=== PATIENT | male | born 1970 | race Caucasian/White ===

== ENCOUNTER 2023-09-29 04:01 | Emergency (ER) | payer MEDICARE, SELFPAY ==
[2023-09-29 04:02] VITALS: BP 129/78
--- NOTE | 2023-09-29 07:19 | ED.GENMED ---
History of Present Illness
General
Chief Complaint: Skin Problem
Source: patient
Exam Limitations: none
Time Seen by Provider: 09/29/23 06:42
Nursing documentation reviewed up to this point in time: agreed with
Travel History
Have you had any contact with someone who has COVID-19?: No
Do you have any symptoms of coronavirus? Fever > 100 degrees, chills, cough, shortness of breath, sore throat, loss of taste or smell, muscle aches, or headache?: No
History of Present Illness
History of Present Illness:
Patient presents to ED secondary to recurrent 'MRSA infection' over the past 2 days, noted over top of his left index finger. Denies fever or chills. Denies nausea or vomiting. Denies trauma. Patient recognized his symptoms, as he has number of
similar skin infection in the past. Patient has responded successfully with use of Bactrim in the past.
Review of Systems
Review of Systems
Allergies reviewed?: Yes
All Other Systems: ROS reviewed and negative except as documented in HPI and ROS
Constitutional: Reports no symptoms; Denies fever or chills
Musculoskeletal: Reports other (finger pain w redness)
Skin: Reports other (finger redness)
Neurological: Reports no symptoms
Phy Exam
Physical Exam
Physical Exam:
Physical Exam
General: no apparent distress, not acutely ill. afebrile
Head: nc/at. eomi
Neck: supple. normal range of motion.
Neuro: alert and oriented. no focal neurological deficits
Skin: left 2nd phalanx - an approx 1mm area of erythema noted over dorsal aspect, prox to nail bed
Psychiatric: well kept. interactive and cooperative
Extremities: no edema. no calf tenderness.
Course
Vital Signs
Initial and Last Documented VS:
Initial Vital Signs
Temp Pulse Resp BP Pulse Ox
98.2 F 92 16 129/78 98
09/29/23 04:02 09/29/23 04:02 09/29/23 04:02 09/29/23 04:02 09/29/23 04:02
Last Documented Vital Signs
Temp Pulse Resp BP Pulse Ox
98.2 F 92 16 129/78 98
09/29/23 04:02 09/29/23 04:02 09/29/23 04:02 09/29/23 04:02 09/29/23 04:02
MDM/Problems Addressed
MDM/Problems Addressed:
History and exam consistent with likely what may be beginning stages of recurrent finger infection. Especially in light of patient's previous skin infection, i.e. MRSA, patient will be started empirically on antibiotics. Patient states that he has
responded successfully with Bactrim. As such, patient will be given short course of Bactrim, along with PCP follow-up as an outpatient.
*Critical Care Note
Total Time (30-74mins, 75-104mins- exclusive of procedures): Not Applicable
ED Attending Note
-
Portions of this chart may have been created with voice recognition software.� Occasional wrong word or��sound alike� substitutions may have occurred due to the inherent limitations of voice recognition software.
Discharge Plan
Departure
Patient Disposition: Home (Routine Discharge)
Date of Disposition: 09/29/23
Time of Disposition: 07:20
Patient with high blood pressure during this ER visit?: Yes
Discharge Problem:
Skin infection
Instructions: Cellulitis (Skin Infection), Adult (DC)
Prescriptions:
New
sulfamethoxazole-trimethoprim [Bactrim DS] 800-160 mg tablet
1 tab PO BID Qty: 14 0RF
No Action
clindamycin HCl 300 MG capsule
300 mg PO Q6HPRN Qty: 40 0RF
Rx Instructions:
take every 6 hrs for 10 days
Stand Alone Forms: Return to Work
Activity Restrictions/Additional Instructions:
As discussed, please follow-up with your primary care physician for reevaluation. Your prescription has been sent electronically to [facility] pharmacy in [place].
Interventions
Interventions:
*Risk Screen - Suicide Last Done: 09/29/23 04:02
*General Assessment Last Done: 09/29/23 04:02
*Neglect/Abuse Screening Last Done: 09/29/23 04:02
ED- Fall Risk Assessment Last Done: 09/29/23 04:02
*ED COVID-19 Vaccine History Last Done: 09/29/23 04:02
*Nursing Disposition Last Done: 09/29/23 07:35
ED-Skin Assessment Last Done: 09/29/23 07:30
Discharge Date and Time
Discharge Date/Time: 09/29/23 07:36
Print Language: FAROESE
== END 2023-09-29 07:36 | disposition home or self-care (01) ==
LOC: EMR 04:01
PROVIDERS: EMERGENCY PHYSICIAN Emergency Medicine
DX: L08.9 Local infection of the skin and subcutaneous tissue, unspecified (principal); R03.0 Elevated blood-pressure reading, without diagnosis of hypertension
CPT/HCPCS: 99283

== ENCOUNTER 2024-01-02 18:50 | Emergency (ER) | payer MEDICARE, SELFPAY ==
[2024-01-02 18:55] VITALS: BP 137/88
[2024-01-02 21:03] VITALS: BP 111/66
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
[2024-01-02] MEDS: DECADRON 10 MG PO (21:13)
== END 2024-01-02 21:20 | disposition home or self-care (01) ==
LOC: EMR 18:50
PROVIDERS: EMERGENCY PHYSICIAN Emergency Medicine
DX: H92.02 Otalgia, left ear (principal); L72.0 Epidermal cyst; L91.8 Other hypertrophic disorders of the skin; Z89.512 Acquired absence of left leg below knee
CPT/HCPCS: 99282

== ENCOUNTER 2024-06-28 04:49 | Inpatient (IN) | payer OTHER, MEDICARE, SELFPAY ==
[2024-06-28] VITALS (21 sets, daily range): BP systolic 97–136; BP diastolic 68–88; BMI 28.2; BMI 25.7; BMI 25.8
[2024-06-28 03:34] LABS: % Basophils 1.2 % (0-2); % Eosinophils 3.1 % (0-6); % Immature Granulocytes 0.3 % (0-0.5); % Lymphocytes 32.5 % (20.5-51.1); % Monocytes 6.8 % (1.7-9.3); % Neutrophils 56.1 % (42.2-75.2); Absolute Basophils 0.1 10^3/uL (0-0.2); Absolute Eosinophils 0.2 10^3/uL (0-0.7); Absolute Lymphocytes 2.1 10^3/uL (1.2-3.4); Absolute Monocytes 0.4 10^3/uL (0.1-0.6); Absolute Neutrophils 3.7 10^3/uL (1.4-6.5); Hematocrit 26.1 % (39.0-52.0); Hemoglobin 7.4 g/dL (13.0-18.0); Mean Corp Hgb Conc. 28.4 g/dL (33.0-37.0); Mean Corpuscular Hgb 17.8 pg (27.0-31.0); Mean Corpuscular Volume 62.9 fL (80.0-94.0); Mean Platelet Volume 9.9 fL (7.4-10.4); Nucleated Red Blood Cells % 0 % (-); Platelet Count 365 10^3/uL (130-400); Red Blood Cell Count 4.15 10^6/uL (4.70-6.10); Red Cell Dist. Width 17.9 % (11.5-14.5); White Blood Cell Count 6.5 10^3/uL (4.8-10.8)
[2024-06-28 03:46] LABS: ALT (SGPT) 34 U/L (0-50); AST (SGOT) 31 U/L (17-59); Albumin 3.9 g/dl (3.5-5.0); Alkaline Phosphatase 88 U/L (38-126); Blood Urea Nitrogen 20 mg/dl (9-20); Calcium 8.8 mg/dl (8.4-10.2); Carbon Dioxide 25 mmol/L (22-30); Chloride 104 mmol/L (98-107); Estimated Creatinine Clearance 87 ml/min; Glucose 120 mg/dl (70-99); Potassium 4.2 mmol/L (3.5-5.1); Sodium 138 mmol/L (135-145); Total Bilirubin 0.2 mg/dl (0.2-1.3); Total Protein 6.6 g/dl (6.3-8.2); eGFR > 60.00
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
[2024-06-28] MEDS: PROTONIX 100 IV (03:54)
[2024-06-28] MEDS: PROTONIX IV 80 MG IV (03:54)
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
[2024-06-28] MEDS: DEBROX EAR DROPS 5 DROP OTIC (08:40)
[2024-06-28] MEDS: NSS 1000 IV ×2 (08:45→22:47)
[2024-06-28 09:36] LABS: Hematocrit 29.1 % (39.0-52.0); Hemoglobin 8.4 g/dL (13.0-18.0)
--- NOTE | 2024-06-28 09:38 | PTCARENOTE ---
Pt arrived onto unit at 0638, VSS, AAOx3, strict bedrest. 1 unit of PRBC administered in ED, 1 additional unit ordered. Admission completed, 1 unit of PRBC hung by this RN, assessed at 15 minute linda, ROSARIO, pt resting comfortably in bed at time with
significant other at bedside. Call rashid within reach.
[2024-06-28 10:15] LABS: Iron < 20 ug/dl (49-181)
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
[2024-06-28 10:19] LABS: Total Iron Binding Capacity 542 ug/dl (261-462)
--- NOTE | 2024-06-28 12:01 | W.PN.HOSP.TC ---
Today's Communication/Plan
-
NPO pending EGD
Assessment / Plan
Assessment / Plan
54y M with PMH significant for GERD / PUD who presents to ED complaining of bloody stools x 3 days.
1. GI Bleed with Acute Blood Loss Anemia. Low MCV, Low iron, High TIBC, high RDW: likely acute on chronic bleed
Patient describes black stool and h/o PUD - but also describes bright red blood in toilet and on toilet paper.
- NPO, IVFs, follow H&H for changes.
- PRBCs ordered in the ED.
- PPI
- GI consult - EGD today
2. Cerumen Impaction - L > R
- Debrox gtt to each ear.
- Follow-up as an outpatient for cerumen extraction if needed.
3. s/p L BKA
- Stable. No acute issues.
- Bedrest for now pending resolution of GI bleeding issues to avoid fall / syncope risk.
DVT Prophylaxis: SCDs
Code Status: Full
Anticipated Discharge: 24 - 48 hours
Subjective/Interval History
-
Date of Service: June 28, 2024
Feels well. No further bleeding.
Objective Data
-
Labs:
Laboratory Results
06/28/24 06/28/24 06/28/24
03:20 07:13 14:37
WBC 6.5
Hgb 7.4 L 8.4 L Pending
Hct 26.1 L 29.1 L Pending
Plt Count 365
Sodium 138
Potassium 4.2
Chloride 104
Carbon Dioxide 25
BUN 20
Creatinine 1.0
Glucose 120 H
Calcium 8.8
Total Bilirubin 0.2
AST 31
ALT 34
Alkaline Phosphatase 88
06/28/24
22:37
WBC
Hgb Pending
Hct Pending
Plt Count
Sodium
Potassium
Chloride
Carbon Dioxide
BUN
Creatinine
Glucose
Calcium
Total Bilirubin
AST
ALT
Alkaline Phosphatase
Vital Signs:
Vital Signs
Temp Pulse Resp BP Pulse Ox
98.2 F 76 16 126/75 97
06/28/24 11:05 06/28/24 11:05 06/28/24 11:05 06/28/24 11:05 06/28/24 11:05
I&O
06/27/24 06/28/24 06/29/24
06:59 06:59 06:59
Intake Total 250 / 250 0 / 0
Balance 250 / 250 0 / 0
Review of Systems
-
History Source: Patient
All other systems: Reviewed and negative
Physical Exam
-
General: Well Developed, Well Nourished, No Apparent Distress, Comfortable and Conversant
HEENT: Normocephalic, Atraumatic, Moist Mucous Membranes, Nose Appears Normal and Ears Appear Normal
Respiratory: Clear to Auscultation
Cardiac: Regular Rhythm, S1/S2 and Murmur
GI: Soft, Nontender and Nondistended
Musculoskeletal: No Clubbing, No Cyanosis and No Edema
Skin: Warm and Dry
Neuro: Awake, Alert, Oriented and AO x 3
Psych: Calm
Data Reviewed
-
Labs: Labs Reviewed by me
[2024-06-28] MEDS: PROTONIX IV (13:46)
[2024-06-28 16:29] LABS: Hematocrit 31.1 % (39.0-52.0); Hemoglobin 9.2 g/dL (13.0-18.0)
[2024-06-28] MEDS: NULYTELY SOLUTION 2 LITERS PO (17:55)
[2024-06-28] MEDS: DEBROX EAR DROPS 1 DROP OTIC (20:16)
[2024-06-28] MEDS: PROTONIX 40 MG PO (20:16)
[2024-06-28 23:05] LABS: Hematocrit 32.1 % (39.0-52.0); Hemoglobin 9.2 g/dL (13.0-18.0)
[2024-06-29 03:06] VITALS: BP 123/85
[2024-06-29] MEDS: NULYTELY SOLUTION 2 LITERS PO (04:37)
[2024-06-29 05:42] VITALS: BMI 26.5
[2024-06-29] MEDS: NSS 1000 IV (07:54)
[2024-06-29] MEDS: DEBROX EAR DROPS 5 DROP OTIC (07:55)
[2024-06-29] MEDS: PROTONIX 40 MG PO (07:55)
[2024-06-29 08:02] VITALS: BP 143/90
[2024-06-29 08:33] LABS: Hematocrit 32.6 % (39.0-52.0); Hemoglobin 9.5 g/dL (13.0-18.0); Mean Corp Hgb Conc. 29.1 g/dL (33.0-37.0); Mean Corpuscular Hgb 19.9 pg (27.0-31.0); Mean Corpuscular Volume 68.3 fL (80.0-94.0); Mean Platelet Volume 9.8 fL (7.4-10.4); Platelet Count 330 10^3/uL (130-400); Red Blood Cell Count 4.77 10^6/uL (4.70-6.10); Red Cell Dist. Width 21.8 % (11.5-14.5); White Blood Cell Count 6.6 10^3/uL (4.8-10.8)
[2024-06-29 09:04] LABS: Blood Urea Nitrogen 9 mg/dl (9-20); Calcium 8.6 mg/dl (8.4-10.2); Carbon Dioxide 23 mmol/L (22-30); Chloride 108 mmol/L (98-107); Estimated Creatinine Clearance 94 ml/min; Glucose 90 mg/dl (70-99); Potassium 4.6 mmol/L (3.5-5.1); Sodium 138 mmol/L (135-145); eGFR > 60.00
[2024-06-29 09:45] VITALS: BP 108/79; BP_SYST 16
[2024-06-29 10:00] VITALS: BP 118/74; BP_SYST 18
--- NOTE | 2024-06-29 11:39 | W.PN.HOSP.TC ---
Today's Communication/Plan
-
If he tolerates diet, discharge home for ongoing outpatient workup.
Assessment / Plan
Assessment / Plan
54y M with PMH significant for GERD / PUD who presents to ED complaining of bloody stools x 3 days.
1. GI Bleed with Acute Blood Loss Anemia. Low MCV, Low iron, High TIBC, high RDW: likely acute on chronic bleed
Patient describes black stool and h/o PUD - but also describes bright red blood in toilet and on toilet paper.
- Tolerating a diet after EGD and Colonoscopy.
- H/H going up
- PPI
- Ok to continue rest of workup (pill endoscopy) as outpatient
2. Cerumen Impaction - L > R
- Debrox gtt to each ear.
- Follow-up as an outpatient for cerumen extraction if needed.
3. s/p L BKA
- Stable. No acute issues.
- Bedrest for now pending resolution of GI bleeding issues to avoid fall / syncope risk.
DVT Prophylaxis: SCDs
Code Status: Full
Anticipated Discharge: Today
Subjective/Interval History
-
Date of Service: June 29, 2024
Feels well. Colonoscopy found hemorroids and polyps. No obvious source of bleeding.
Objective Data
-
Labs:
Laboratory Results
06/29/24
07:54
WBC 6.6
Hgb 9.5 L
Hct 32.6 L
Plt Count 330
Sodium 138
Potassium 4.6
Chloride 108 H
Carbon Dioxide 23
BUN 9
Creatinine 0.9
Glucose 90
Calcium 8.6
Vital Signs:
Vital Signs
Temp Pulse Resp BP Pulse Ox
97.4 F 74 18 118/74 96
06/29/24 10:00 06/29/24 10:00 06/29/24 10:00 06/29/24 10:00 06/29/24 10:00
I&O
06/28/24 06/29/24 06/30/24
06:59 06:59 06:59
Intake Total 250 / 250 4750 / 4750
Output Total 675 / 675
Balance 250 / 250 4075 / 4075
Review of Systems
-
History Source: Patient
All other systems: Reviewed and negative
Physical Exam
-
General: Well Developed, Well Nourished, No Apparent Distress and Comfortable
HEENT: Normocephalic, Atraumatic and Moist Mucous Membranes
Respiratory: Clear to Auscultation
Cardiac: Regular Rhythm and S1/S2
GI: Soft, Nontender and Nondistended
Musculoskeletal: No Clubbing, No Cyanosis and No Edema
Skin: Warm and Dry
Neuro: Awake, Alert, Oriented and AO x 3
Psych: Calm
Data Reviewed
-
Labs: Labs Reviewed by me
--- NOTE | 2024-06-29 11:46 | W.DCSUMMARY ---
Discharge Summary
Discharge Data
Date of Admission: 06/28/24
Date of Discharge: 06/29/24
-
Pending Results: No
Hospital Course
Principal Diagnosis:
Gastrointestinal bleeding
See results of EGD and colonoscopy below
Chronic Diagnoses:�
GERD
PUD
Traumatic BKA
Consultations:�
GI
Procedures:�
Endoscopy:
Findings:
- Normal esophagus.
- 4 cm hiatal hernia.
- LA Grade A reflux esophagitis with no bleeding. Rule
out Galarza's esophagus. Biopsied.
- Mild Schatzki ring.
- Mucosal nodule found in the esophagus. Biopsied.
- Erythematous mucosa in the antrum. Biopsied.
- A few gastric polyps. Biopsied.
- Normal examined duodenum. Biopsied.
- Duodenal mucosal lymphangiectasia.
- Erythematous duodenopathy.
- Biopsies were taken with a cold forceps for
evaluation of eosinophilic esophagitis.
Diagnosis Code(s):
K44.9, Diaphragmatic hernia without obstruction or
gangrene
K21.00, Gastro-esophageal reflux disease with
esophagitis, without bleeding
K22.2, Esophageal obstruction
K22.89, Other specified disease of esophagus
K31.89, Other diseases of stomach and duodenum
K31.7, Polyp of stomach and duodenum
I89.0, Lymphedema, not elsewhere classified
R10.84, Generalized abdominal pain
R12, Heartburn
D50.0, Iron deficiency anemia secondary to blood loss
(chronic)
K92.1, Melena (includes Hematochezia)
Colonoscopy
Findings
- Large external, non-thrombosed hemorrhoids found on
perianal exam. Suspect source of previous bright red
blood per rectum
- One 3 mm polyp in the cecum, removed with a jumbo
cold forceps. Resected and retrieved.
- One 5 mm polyp in the descending colon, removed with
a cold snare. Resected and retrieved.
- Moderate diverticulosis in the sigmoid colon and in
the descending colon. There was no evidence of
diverticular bleeding.
- The exam was otherwise without abnormality on direct
and retroflexion views without any old or fresh blood,
AVMs, masses, or endoscopic signs of inflammation
throughout the colon.
Recommendation:
- Resume previous diet today.
- Continue present medications.
- Await pathology results.
- Repeat colonoscopy in 3 years for surveillance.
- Outpatient follow-up with Colorectal surgery given
large external hemorrhoids and likely source of
intermittent rectal bleeding
- Outpatient follow-up with GI for consideration of a
video capsule endoscopy as an outpatient for further
evaluation of iron deficiency anemia
- The findings and recommendations were discussed with
the patient.
Diagnosis Code(s):
K64.9, Unspecified hemorrhoids
D12.0, Benign neoplasm of cecum
D12.4, Benign neoplasm of descending colon
K62.5, Hemorrhage of anus and rectum
D50.9, Iron deficiency anemia, unspecified
K57.30, Diverticulosis of large intestine without
perforation or abscess without bleeding
Clinical course:�
54y M with a PMH significant for GERD / PUD who presented to the ED complaining of bloody stools x 3 days.
He
1. GI Bleed with Acute Blood Loss Anemia. Low MCV, Low iron, High TIBC, high RDW: likely acute on chronic bleed
Patient describes black stool and h/o PUD - but also describes bright red blood in toilet and on toilet paper.
- Tolerating a diet after EGD and Colonoscopy.
- H/H going up
- PPI BI ordered
- Ok to continue rest of workup (pill endoscopy) as outpatient
- See GI recommendations above
- Avoid NSAIds and steroids
- discuss iron supplementation with GI provider
- results and these recommendations d/w patient. he agrees with discharge.
2. Cerumen Impaction - L > R
- Debrox gtt to each ear.
- Follow-up as an outpatient for cerumen extraction if needed.
3. s/p L BKA
- Stable. No acute issues.
- Bedrest for now pending resolution of GI bleeding issues to avoid fall / syncope risk.
As for the rest of his medical problems, they were stable during his hospital stay.
Discharge Plan
-
Patient Disposition: Home (Routine Discharge)
Discharge Diagnosis/Procedures: Gastrointestinal bleeding
Diet: As tolerated
Activity: No restrictions
Driving Restrictions: As prior to admission
Bathing Restrictions: None
Blood Work: Check CBC with your outpatient provider as soon as you can.
Referrals:
NONE,* [Family Provider] - Immediately
(Follow up with your enrollment management manager as soon as you can.
Please call to reschedule if you can not keep this appointment. If your insurance requires a referral please contact your primary care physician prior to your appointment. )
Prescriptions:
New
acetaminophen 325 mg Tablet
650 mg PO Q4HPRN PRN (Reason: Mild Pain / Temp > 101) Qty: 30 0RF
pantoprazole 40 mg Tablet,Delayed Release (Dr/Ec)
40 mg PO BID Qty: 60 0RF
Discontinued
esomeprazole magnesium [Nexium] 20 mg Capsule,Delayed Release(Dr/Ec)
20 mg PO DAILY
Discharge Orders:
Discharge Patient (As Directed); Ordered 06/29/24
Ordered By: Ramon Laurent
Discharge Date and Time
Print Language: FRENCH
[2024-06-29 11:55] VITALS: BP 120/76
--- NOTE | 2024-06-29 11:56 | CM ---
Pt seen bedside. Initial assessment completed.
Pt reports he lives w/ his girlfriend and friend in a single story home- 3/4 steps to enter.
Pt is a L leg amputee and states he is independent w/ ambulating. Pt states he uses a knee scooter to travel longer distances. No other DME identified.
Pt is known to [place] for both OP therapy and skilled rehab years ago.
Address, point of contact and insurance verified
PCP: Pt does not have a PCP at this time. CM instructed pt to contact his insurance to get a provider within network
Pharmacy: [facility]
Pt is for d/c today. Pt discussed w/ CM interest in housing and credit repair resources.
CM provided resources to pt via nurse retrieved from [facility] system.
Plan: Home; no needs
--- NOTE | 2024-07-02 14:19 | PN.CDI ---
CDI
- -
CDI:
Physician Documentation Request
Admit Date: 06/28/24 04:49
Dear Doctor Xi,
Please review the following and provide your response in the progress notes.
Diagnosis:
The diagnosis is of PUD is documented in the record on H&P and DC Summary
Clinical indicators:
- per H&P patient has pmh Gerd/PUD with prior GI bleeds
- home medication Nexium daily
- EGD and pathology do not state PUD
Please clarify the following:
____ - PUD was present on admission and is still being monitored, evaluated or treated
____ - PUD was ruled out
____ - Other
Use of terms such as suspected, likely, concern for, or probable (associated with a specific diagnosis that is being evaluated, monitored, or treated as if it exists) are acceptable and can be coded in the inpatient setting, when documented at the
time of discharge.
Thank you,
Brenden eHrnandez RN
CDI Specialist
Please use your independent medical judgment in providing your response.
--- NOTE | 2024-07-02 15:34 | W.PN.UPDATE ---
Update Note
Progress Note Update
Asked to updated chart by CDI RN.
EGD does not show ulcer therefore that ruled out PUD.
== END 2024-06-29 15:00 | disposition home or self-care (01) | DRG 394 ==
LOC: 2 NORTH 04:49
PROVIDERS: Nurse Practitioner; Student in an Organized Health Care Education/Training Program; ADMITTING PHYSICIAN Hospitalist; ATTENDING PHYSICIAN Internal Medicine; EMERGENCY PHYSICIAN Student in an Organized Health Care Education/Training Program; OTHER PHYSICIAN Internal Medicine Gastroenterology
PROC: 0DB68ZX Excision of Stomach, Via Natural or Artificial Opening Endoscopic, Diagnostic (ICD-10-PCS; 2024-06-28)
PROC: 0DB18ZX Excision of Upper Esophagus, Via Natural or Artificial Opening Endoscopic, Diagnostic (ICD-10-PCS; 2024-06-28)
PROC: 0DB78ZX Excision of Stomach, Pylorus, Via Natural or Artificial Opening Endoscopic, Diagnostic (ICD-10-PCS; 2024-06-28)
PROC: 0DB98ZX Excision of Duodenum, Via Natural or Artificial Opening Endoscopic, Diagnostic (ICD-10-PCS; 2024-06-28)
PROC: 30233N1 Transfusion of Nonautologous Red Blood Cells into Peripheral Vein, Percutaneous Approach (ICD-10-PCS; 2024-06-28)
PROC: 0DB38ZX Excision of Lower Esophagus, Via Natural or Artificial Opening Endoscopic, Diagnostic (ICD-10-PCS; 2024-06-28)
PROC: 0DBM8ZZ Excision of Descending Colon, Via Natural or Artificial Opening Endoscopic (ICD-10-PCS; 2024-06-29)
PROC: 0DBH8ZZ Excision of Cecum, Via Natural or Artificial Opening Endoscopic (ICD-10-PCS; 2024-06-29)
DX: K64.9 Unspecified hemorrhoids (principal); D62 Acute posthemorrhagic anemia; F17.210 Nicotine dependence, cigarettes, uncomplicated; K22.2 Esophageal obstruction; K21.00 Gastro-esophageal reflux disease with esophagitis, without bleeding; K31.7 Polyp of stomach and duodenum; D12.0 Benign neoplasm of cecum; D12.4 Benign neoplasm of descending colon; H61.23 Impacted cerumen, bilateral; I89.0 Lymphedema, not elsewhere classified; K57.30 Diverticulosis of large intestine without perforation or abscess without bleeding; K44.9 Diaphragmatic hernia without obstruction or gangrene; Z89.512 Acquired absence of left leg below knee; Z86.73 Personal history of transient ischemic attack (TIA), and cerebral infarction without residual deficits; Z87.11 Personal history of peptic ulcer disease
CPT/HCPCS: 88305; 80048; 80053; 83540; 83550; 85014; 85018; 85025; 85027; 86850; 86900; 86901; 86920; 87070; 88342; 93005; 96374; 99285; P9016

== ENCOUNTER 2024-07-08 04:09 | Observation (INO) | payer OTHER, SELFPAY ==
[2024-07-07 23:46] VITALS: BP 147/92
[2024-07-08] VITALS (7 sets, daily range): BP systolic 105–144; BP diastolic 59–88; PULSE 84–99; BMI 26.5
[2024-07-08 00:25] LABS: % Eosinophils 2.6 % (0-6); % Immature Granulocytes 0.3 % (0-0.5); % Lymphocytes 33.1 % (20.5-51.1); Absolute Basophils 0.1 10^3/uL (0-0.2); Absolute Eosinophils 0.2 10^3/uL (0-0.7); Absolute Lymphocytes 2.3 10^3/uL (1.2-3.4); Absolute Monocytes 0.5 10^3/uL (0.1-0.6); Absolute Neutrophils 3.9 10^3/uL (1.4-6.5); Hematocrit 29.6 % (39.0-52.0); Hemoglobin 8.6 g/dL (13.0-18.0); Mean Corp Hgb Conc. 29.1 g/dL (33.0-37.0); Mean Corpuscular Hgb 19.5 pg (27.0-31.0); Mean Corpuscular Volume 67.1 fL (80.0-94.0); Mean Platelet Volume 9.7 fL (7.4-10.4); Nucleated Red Blood Cells % 0 % (-); Platelet Count 350 10^3/uL (130-400); Red Blood Cell Count 4.41 10^6/uL (4.70-6.10); Red Cell Dist. Width 21.9 % (11.5-14.5); White Blood Cell Count 6.9 10^3/uL (4.8-10.8)
[2024-07-08 00:33] LABS: INR 0.94; PT 13.1 Sec (11.4-14.6)
[2024-07-08 00:34] LABS: APTT 27.3 Sec (23.4-35.0)
[2024-07-08 00:46] LABS: ALT (SGPT) 23 U/L (0-50); AST (SGOT) 23 U/L (17-59); Alkaline Phosphatase 92 U/L (38-126); Blood Urea Nitrogen 13 mg/dl (9-20); Calcium 9.2 mg/dl (8.4-10.2); Carbon Dioxide 23 mmol/L (22-30); Chloride 105 mmol/L (98-107); Glucose 119 mg/dl (70-99); Potassium 4.1 mmol/L (3.5-5.1); Sodium 138 mmol/L (135-145); Total Bilirubin 0.2 mg/dl (0.2-1.3); Total Protein 6.8 g/dl (6.3-8.2); eGFR > 60.00
--- NOTE | 2024-07-08 01:23 | ED.GENMED ---
History of Present Illness
General
Chief Complaint: Rectal Bleeding
Time Seen by Provider: 07/08/24 01:17
History of Present Illness
History of Present Illness:
TIME OF INITIAL ENCOUNTER: 1:15 AM
HPI: Patient presents with recurrence of rectal bleeding. He was supposed to get capsule endoscopy as an outpatient but insurance would not cover it and this study was canceled. He had endoscopy and colonoscopy last admission a week and a half ago
and at that time was also given a blood transfusion. He has continued rectal bleeding with a general unwell feeling/weakness. He has some vague abdominal bloating as well.
EXAM:
GENERAL: Appears somewhat weak and pale
HEENT: Moist oral mucosa
CARDIOVASCULAR: No murmurs, normal heart rate, regular rhythm, No chest wall tenderness
PULMONARY: No respiratory distress, breath sounds are clear and equal
ABDOMEN: Soft with no peritoneal signs, no tenderness, large external hemorrhoids noted but no active bleeding, there was pain with palpation of the anal region
NEUROLOGIC: Excellent strength all extremities, no coordination deficits
PSYCHIATRIC: Appropriate mental status, normal insight and judgement
EXTREMITIES: Nontender, no edema, moves all extremities equally
NUMBER AND COMPLEXITY OF PROBLEMS ADDRESSED AT THE ENCOUNTER
� Chronic conditions affecting care: Recent diagnosis acute blood loss anemia
� Acute Exacerbation and/or Progression of Chronic Illness: This is a subacute/ongoing problem
� Differential Diagnosis includes: Upper GI bleed, diverticular bleed, GERD, blood loss from hemorrhoids
AMOUNT AND/OR COMPLEXITY OF DATA TO BE REVIEWED AND ANALYZED
� I performed an independent evaluation of and my interpretation is:
EKG:
CT:
X-rays:
Laboratory Studies: Hemoglobin is 8.6, white count is normal, platelets are normal, chemistries relatively unremarkable with normal BUN
Other:
� Review of other/old records: I reviewed records. I reviewed EGD biopsies that showed unremarkable duodenal mucosa, no evidence for H. pylori, gastric xanthelasma, unremarkable esophageal biopsies. Cecal/descending colon
polyps biopsy showed tubular adenomas.
� Clinical information was obtained by an independent historian: I spoke to girlfriend at bedside
� Prescriptions/Medications Considered but not given:
� Further testing considered but not performed:
RISK OF COMPLICATIONS AND/OR MORBIDITY OR MORTALITY OF PATIENT MANAGEMENT
� Social determinants of health affecting care: Lives at home
� Discussion with other providers: Hospitalist for admission
� Escalation of care including admission/observation vs risk of discharge considered: The patient comes in due to recurring GI bleed. Had recent endo/colo w/ unremarkable biopsies when admitted here 1.5wks ago. Continues to bleed
w/ BMs. In 2018 hgb 14, was as low as 7.4 last admit, was transfused then d/c'd at 9.5. Now hgb dropping again at 8.6, but no gross blood / no stool in rectal vault to test. He has large external hemorrhoids on exam - d/c summary said he was to see
colorectal as outpt but he doesn't think he did. He was to get capsule endoscopy, but was cancelled based on his insurance. Since he is dropping, I would like GI to see again / repeat hgb tomorrow / colorectal.
ANY OTHER UPDATES:
Phy Exam
Physical Exam
Physical Exam:
See HPI
Sepsis
Sepsis Screening
Sepsis Assessment: Sepsis Ruled Out
Sepsis Screen
Sepsis Screen: Sepsis Ruled Out
Date: 07/08/24
Time: 02:15
Course
Orders/Labs/Results
Orders:
Orders
07/07/24 23:52
CMP [Comprehensive Metabolic Panel] Urgent
Complete Blood Count/With Diff Urgent
07/07/24 23:53
PTT Urgent
Prothrombin Time Urgent
Abnormal Lab Results
07/08/24
00:03
RBC 4.41 L 10^6/uL
(4.70-6.10)
Hgb 8.6 L g/dL
(13.0-18.0)
Hct 29.6 L %
(39.0-52.0)
MCV 67.1 L fL
(80.0-94.0)
MCH 19.5 L pg
(27.0-31.0)
MCHC 29.1 L g/dL
(33.0-37.0)
RDW 21.9 H %
(11.5-14.5)
Glucose 119 H mg/dl
(70-99)
07/08/24 00:03
07/08/24 00:03
Vital Signs
Initial and Last Documented VS:
Initial Vital Signs
Temp Pulse Resp BP Pulse Ox
36.4 C 100 24 147/92 99
07/07/24 23:46 07/07/24 23:46 07/07/24 23:46 07/07/24 23:46 07/07/24 23:46
Last Documented Vital Signs
Temp Pulse Resp BP Pulse Ox
36.4 C 100 24 147/92 99
07/07/24 23:46 07/07/24 23:46 07/07/24 23:46 07/07/24 23:46 07/07/24 23:46
*Critical Care Note
Total Time (30-74mins, 75-104mins- exclusive of procedures): Not Applicable
ED Attending Note
-
Portions of this chart may have been created with voice recognition software.� Occasional wrong word or��sound alike� substitutions may have occurred due to the inherent limitations of voice recognition software.
Discharge Plan
Departure
Patient Disposition: Admit
Date of Disposition: 07/08/24
Time of Disposition: 02:01
Presentation/result/management discussed w/ accepting MD/DO: Hospitalist
Discharge Problem:
Acute on chronic blood loss anemia
Prescriptions:
No Action
acetaminophen 325 mg Tablet
650 mg PO Q4HPRN PRN (Reason: Mild Pain / Temp > 101) Qty: 30 0RF
pantoprazole 40 mg Tablet,Delayed Release (Dr/Ec)
40 mg PO BID Qty: 60 0RF
Referrals:
UNKNOWN - PT DOES,NOT KNOW [Family Provider] -
Interventions
Interventions:
*Risk Screen - Suicide Last Done: 07/07/24 23:46
Discharge Date and Time
Print Language: SLOVENIAN
--- NOTE | 2024-07-08 03:01 | HPS.HSE ---
Family Physician
-
Family Physician: NOT KNOW UNKNOWN - PT DOES
Chief Complaint
-
Rectal bleeding and melena
History of Present Illness
This is a 54-year-old past medical history significant for prior peptic ulcer disease, large thrombosed hemorrhoid who was seen in the hospital for rectal bleeding status post EGD and colonoscopy now presents to the emergency department with ongoing
similar bleeding at his previous presentation.
Patient has history of rectal bleeding status post transfusion for blood loss anemia in the past. He had EGD colonoscopy in late May for rectal bleeding and dark stools. EGD was mostly unremarkable with a gastric and duodenal polyp status
post resection and biopsy. The colonoscopy showed thrombosed internal hemorrhoid, a cecal polyp and a descending colon polyp s/p resection. Patient was advanced on his diet and referred for capsule endoscopy as well as to colorectal for management
of the internal hemorrhoid. Since discharge patient reports that he has continued to bleed. Reports both back tarry stool as well as red blood stool. Usually these are mixed. He denies significant rectal pain unless he is sitting on a hard
surface for prolonged period of time. He denies any lightheadedness. He denies dizziness. Patient reports that he has been feeling weak and lethargic over the last few days and decided come in. Unfortunately his capsule endoscopy has been
postponed. He also has not been able to follow-up with colorectal. He has lost his primary care doctor and is currently seeking 1 with the help of his significant other. Patient was not on any medications. No NSAIDs.
In the emergency department he was afebrile, blood pressure was stable at 140/90 with a pulse of 100. His hemoglobin was 8.6 down from 9.51-week ago. Electrolytes BUN/creatinine were normal.
Medical History
Past Medical History
Past Medical History: Reports GERD and Other (Peptic ulcer disease)
Additional Past Medical History:
Anemia of blood loss
Past Surgical History: Reports Other
Additional Past Surgical History:
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
Social History
Alcohol: None
Drug: None
Personal: Partner
Living: With Family
Family History
Family History: Not pertinent
Allergies / Home Medications
Allergies reflects when Allergies were last updated in [facility].
Home Medications with original date entered in [facility]
Allergy/Medication List:
Allergies
Allergy/AdvReac Type Severity Reaction Status Date / Time
No Known Allergies Allergy Verified 07/07/24 23:44
Home Medications
acetaminophen 325 mg tablet 650 mg (2 x 325 mg) PO Q4HPRN PRN Mild Pain / Temp > 101 #30 tabs 06/29/24
pantoprazole 40 mg tablet,delayed release 40 mg PO BID #60 tabs 06/29/24
Review of Systems
-
History Source: Patient and Family
Constitutional: Reports No Symptoms
EENT: Reports No Symptoms
Respiratory: Reports No Symptoms
Cardiac: Reports No Symptoms
Abdomen/GI: Reports Bloody Stools and Black Stools
: Reports No Symptoms
Musculoskeletal: Reports No Symptoms
Skin: Reports No Symptoms
Neurological: Reports No Symptoms
Endocrine: Reports No Symptoms
Hematologic/Lymphatic: Reports No Symptoms
Psych: Reports No Symptoms
Physical Exam
Vital Signs
Vital Signs
Temp Pulse Resp BP Pulse Ox
97.6 F 100 24 147/92 99
07/07/24 23:46 07/07/24 23:46 07/07/24 23:46 07/07/24 23:46 07/07/24 23:46
Physical Exam
General: Well Developed, Well Nourished and No Apparent Distress
HEENT: NormoCephalic, Anicteric, Moist mucous membranes and Atraumatic
Respiratory: Clear
Cardiac: S1/S2 and Regular Rhythm
Breast: Deferred by me
GI: Soft, Non Tender, Non Distended and Normal Bowel Sounds
Rectal: Deferred by Provider
Genito-urinary: Deferred by me
Musculoskeletal: No Clubbing, No Cyanosis and No Edema
Skin: Warm
Neuro: AO x 3 and Nonfocal/grossly intact
Hematologic/Lymphatic: No Lymphadenopathy
Psych: Calm
Laboratory Results
-
07/08/24 00:03
07/08/24 00:03
Laboratory Results
PT 13.1 Sec (11.4-14.6) 07/08/24 00:03
INR 0.94 07/08/24 00:03
APTT 27.3 Sec (23.4-35.0) 07/08/24 00:03
Total Bilirubin 0.2 mg/dl (0.2-1.3) 07/08/24 00:03
AST 23 U/L (17-59) 07/08/24 00:03
ALT 23 U/L (0-50) 07/08/24 00:03
Alkaline Phosphatase 92 U/L (38-126) 07/08/24 00:03
Data Reviewed
-
Lab Data: Labs Reviewed by me
Old Records: Reviewed
Impression/Plan
-
IMPRESSION:
Subacute on chronic blood loss anemia. Hgb down to 8.6 with ongoing slow GI bleed 2/2 hemorrhoids. Small bowel as possible additional source of bleeding. Hemodynamically stable here and in no acute distress. Feels anemic. Low Iron and MCV is
dropping.
PLAN:
1. Subacute blood loss anemia and iron deficiency from ongoing GI bleeding. No evidence of change in intensity of bleeding compared to discharge time.
- admit to med/surg
- continue ppi orally bid
- clear liquid diet
- type and screen, HD stable and no profuse bleeding, no indication for immediate transfusion
- check h&h in 8 hours
- iron infusion
- GI consult
2. Cerumen Impaction - L > R
- Follow-up as an outpatient for cerumen extraction if needed.
DVT PPX SCDs
Code status = full code
[2024-07-08] MEDS: FERRLECIT 110 MG IV (04:50)
[2024-07-08] MEDS: PROTONIX 40 MG PO ×2 (07:58→20:14)
--- NOTE | 2024-07-08 08:23 | CON.GI ---
Addendum entered and electronically signed by Isatu Holliday MD 07/08/24 17:47:
I saw and examined the patient.
The Resident's note was reviewed and I agree with the note.
Comment: 54-year-old male with history of right BKA, history of peptic ulcer disease, GERD, who was recently admitted to the hospital 06/28/2024 with intermittent rectal bleeding at [facility] E[facility]/colonoscopy-remarkable for LA grade a esophagitis, colon
polyps that were removed and diverticulosis and hemorrhoids. He was discharged on 06/29/2024 now presenting with rectal bleeding, blood dripping into the toilet bowl. Discharge hemoglobin 06/29/2024 was 9.5, today it is 8.9. He does have iron
deficiency indices, he was supposed to get small bowel capsule study as an outpatient but was canceled due to insurance reasons.
On exam, nonthrombosed external hemorrhoids noted, some discomfort during digital rectal exam, no fresh blood noted but tinge of mucus in blood.
-Rectal bleeding with blood dripping into the toilet bowl, likely related to internal hemorrhoids.
Colonoscopy 10 days ago with diverticulosis and polyps and hemorrhoids but no other source for bleeding.
Patient does report pushing and straining with bowel movements and incomplete evacuation and bright blood on the toilet tissue, in the bowl and dripping more suggesting hemorrhoidal bleeding.
He was supposed to follow-up with colorectal surgery as outpatient but has not made an appointment.
For colorectal surgery consultation and further management of hemorrhoids per colorectal surgery.
-Microcytic indices, he will need eventual small bowel capsule study.
Will arrange for follow-up with our office.
Will sign off for now, please call back if needed
Original Note:
Documented by User: Jadiel Guy MD, Resident 07/08/24 13:57
Consultation
-
Date/Time Consultation Requested: 07/08/2024 07: 01
Date/Time Consultation Performed: 07/08/2024 08: 30
Requesting Provider: Grace Cameron MD
Performing Provider: Isatu Holliday MD
Reason for Consultation: Persistent GI bleed
Medical History
Chief Complaint / HPI
Chief Complaint: Persistent GI bleeding
History of Present Illness:
54-year-old male with PMH of PUD, GERD, rectal bleeding with blood loss anemia, recently discharged from this hospital on 06/29/2024 for rectal bleeding s/p EGD/colonoscopy who presents to ED on 07/08/2024 with black tarry stool, recurrent/similar
rectal bleeding with blood loss anemia. Patient reports that this has been an ongoing situation in which he gets GI bleed for sitting for too long. Gastroenterology was consulted for further evaluation and management of patient.
During his last visit, patient was evaluated with colonoscopy and endoscopy with resection and biopsy of multiple polyps in the gastric fundus, cecum, and descending colon. There was also a large nonthrombosed external hemorrhoid on perianal exam
suspicious for source of bleeding. No other source of bleeding was identified during the procedures. Pathology reports where remarkable for tubular adenoma in the cecum and descending colon. Endoscopic biopsies were unremarkable except for fundic
gland polyp with gastric xanthelasma with no evidence of H. pylori. Patient was discharged and referred for capsule endoscopy and colorectal surgery follow-up. However, patient was not able to get capsule endoscopy due to insurance coverage and has
not followed up with colorectal.
Patient reports continuous rectal bleeding, weakness and lethargy over the past few days. He takes pantoprazole 40 mg twice daily and does not take any NSAIDs. Patient is a current smoker (2 cigarettes daily), but does not drink alcohol. While
in the ED, patient's vitals are stable, he is afebrile and breathing on room air and saturating at 97%. He is Hb is 8.6, MCV 67.1, platelets 350, PT/INR WNL. Patient denies chest pain, shortness of breath, abdominal pain, dizziness, fever, chills,
headaches.
Past Medical History
Past Medical History: CAD (?), GERD and Other (PUD, TIA)
Past Surgical History: Other (Left BKA, polyps resection)
Social History
Tobacco: Smoker (2 cigarettes daily)
Alcohol: None
Drug: None
Family History
Family History: Cancer (Mother: Breast cancer, father: Colon cancer)
Allergies / Home Medications
Allergy/AdvReac Type Severity Reaction Status Date / Time
No Known Allergies Allergy Verified 07/07/24 23:44
�Medication �Instructions �Recorded
No Meds [No Current Medications] 07/08/24
Review of Systems
-
All other systems: A 12 pt ROS was Negative except as stated above in HPI
Vital Signs
Temp Pulse Resp BP Pulse Ox
97.8 F 76 16 105/72 97
07/08/24 08:08 07/08/24 08:08 07/08/24 08:08 07/08/24 08:08 07/08/24 08:08
Physical Exam
Exam
General: Well Developed, No Apparent Distress and Comfortable
Respiratory: Clear and Non Labored Respirations; Negative Wheezes or Rhonchi
Cardiac: S1/S2, Regular Rhythm and Murmur (Systolic ejection murmur)
GI: Soft and Non Tender
Skin: Warm
Neuro: Awake and AO x 3
Psych: Calm
Results
WBC 6.9 10^3/uL (4.8-10.8) 07/08/24 00:03
Hgb 8.6 g/dL (13.0-18.0) L 07/08/24 00:03
Hct 29.6 % (39.0-52.0) L 07/08/24 00:03
MCV 67.1 fL (80.0-94.0) L 07/08/24 00:03
Plt Count 350 10^3/uL (130-400) 07/08/24 00:03
Absolute Neuts (auto) 3.9 10^3/uL (1.4-6.5) 07/08/24 00:03
PT 13.1 Sec (11.4-14.6) 07/08/24 00:03
INR 0.94 07/08/24 00:03
APTT 27.3 Sec (23.4-35.0) 07/08/24 00:03
Sodium 138 mmol/L (135-145) 07/08/24 00:03
Potassium 4.1 mmol/L (3.5-5.1) 07/08/24 00:03
Chloride 105 mmol/L (98-107) 07/08/24 00:03
Carbon Dioxide 23 mmol/L (22-30) 07/08/24 00:03
BUN 13 mg/dl (9-20) 07/08/24 00:03
Creatinine 1.1 mg/dL (0.7-1.3) 07/08/24 00:03
Calcium 9.2 mg/dl (8.4-10.2) 07/08/24 00:03
Total Bilirubin 0.2 mg/dl (0.2-1.3) 07/08/24 00:03
AST 23 U/L (17-59) 07/08/24 00:03
ALT 23 U/L (0-50) 07/08/24 00:03
Alkaline Phosphatase 92 U/L (38-126) 07/08/24 00:03
Assessment / Plan
-
Assessment: 54-year-old male with PMH of PUD, GERD, recurrent rectal bleeding, acute blood loss anemia who presented to ED with complaints of recurrent/persistent GI bleed after recent discharge.
Recommendations:
Subacute GI bleeding.
-Suspect bleeding from internal hemorrhoid (generally external hemorrhoids does not bleed). External hemorrhoid may have thrombosed and bled. Hemorrhoidal bleeding generally does not cause iron deficiency anemia.
-Check celiac panel.
-Supportive therapy with IV fluid, pain management.
-Outpatient capsule endoscopy as scheduled.
-Follow-up with colorectal as scheduled.
-Continue on clear liquid diet, advance as tolerated.
-Follow H&H and transfuse to keep Hb >7.0.
-Advised not to sit for so long on toilet bowl.
-Continue PPI.
-Will sign off.
Diagnostic Image Results:
EGD 06/29/2024:
- Normal esophagus.
- 4 cm hiatal hernia.
- LA Grade A reflux esophagitis with no bleeding. Rule
out Galarza's esophagus. Biopsied.
- Mild Schatzki ring.
- Mucosal nodule found in the esophagus. Biopsied.
- Erythematous mucosa in the antrum. Biopsied.
- A few gastric polyps. Biopsied.
- Normal examined duodenum. Biopsied.
- Duodenal mucosal lymphangiectasia.
- Erythematous duodenopathy.
- Biopsies were taken with a cold forceps for
evaluation of eosinophilic esophagitis.
Colonoscopy 06/19/2024:
- Normal esophagus.
- 4 cm hiatal hernia.
- LA Grade A reflux esophagitis with no bleeding. Rule
out Galarza's esophagus. Biopsied.
- Mild Schatzki ring.
- Mucosal nodule found in the esophagus. Biopsied.
- Erythematous mucosa in the antrum. Biopsied.
- A few gastric polyps. Biopsied.
- Normal examined duodenum. Biopsied.
- Duodenal mucosal lymphangiectasia.
- Erythematous duodenopathy.
- Biopsies were taken with a cold forceps for
evaluation of eosinophilic esophagitis.
-
-
Thank you for consultation and allowing me to participate in the patient's care. Please call the cotton inspector GI physician during the after hours with any questions or concerns.

Documented by User: Isatu Holliday MD 07/08/24 16:22
Assessment / Plan
-
Assessment: 54-year-old male with PMH of PUD, GERD, recurrent rectal bleeding, acute blood loss anemia who presented to ED with complaints of recurrent/persistent GI bleed after recent discharge.
Recommendations:
Subacute GI bleeding.
-Suspect bleeding from internal hemorrhoid (generally external hemorrhoids does not bleed). External hemorrhoid may have thrombosed and bled. Hemorrhoidal bleeding generally does not cause iron deficiency anemia.
-Check celiac panel.
-Supportive therapy with IV fluid, pain management.
-Outpatient capsule endoscopy as scheduled.
-Follow-up with colorectal as scheduled.
-Continue on clear liquid diet, advance as tolerated.
-Follow H&H and transfuse to keep Hb >7.0.
-Advised not to sit for so long on toilet bowl.
-Continue PPI
Diagnostic Image Results:
EGD 06/29/2024:
- Normal esophagus.
- 4 cm hiatal hernia.
- LA Grade A reflux esophagitis with no bleeding. Rule
out Galarza's esophagus. Biopsied.
- Mild Schatzki ring.
- Mucosal nodule found in the esophagus. Biopsied.
- Erythematous mucosa in the antrum. Biopsied.
- A few gastric polyps. Biopsied.
- Normal examined duodenum. Biopsied.
- Duodenal mucosal lymphangiectasia.
- Erythematous duodenopathy.
- Biopsies were taken with a cold forceps for
evaluation of eosinophilic esophagitis.
Colonoscopy 06/19/2024:
- Normal esophagus.
- 4 cm hiatal hernia.
- LA Grade A reflux esophagitis with no bleeding. Rule
out Galarza's esophagus. Biopsied.
- Mild Schatzki ring.
- Mucosal nodule found in the esophagus. Biopsied.
- Erythematous mucosa in the antrum. Biopsied.
- A few gastric polyps. Biopsied.
- Normal examined duodenum. Biopsied.
- Duodenal mucosal lymphangiectasia.
- Erythematous duodenopathy.
- Biopsies were taken with a cold forceps for
evaluation of eosinophilic esophagitis.
[2024-07-08 12:14] LABS: Hematocrit 31.6 % (39.0-52.0); Hemoglobin 8.9 g/dL (13.0-18.0); Mean Corp Hgb Conc. 28.2 g/dL (33.0-37.0); Mean Corpuscular Hgb 19.2 pg (27.0-31.0); Mean Corpuscular Volume 68.1 fL (80.0-94.0); Platelet Count 365 10^3/uL (130-400); Red Blood Cell Count 4.64 10^6/uL (4.70-6.10); Red Cell Dist. Width 22.2 % (11.5-14.5); White Blood Cell Count 6.1 10^3/uL (4.8-10.8)
--- NOTE | 2024-07-08 14:59 | W.PN.UPDATE ---
Update Note
Progress Note Update
Seen by Dr. Cameron
Patient returns to the ER back with daily rectal bleeding. He recently had a colonoscopy and upper GI endoscopy without any obvious evidence of bleeding. Seen by GI today who feels possibly hemorrhoidal bleeding.
Consult colorectal surgery.
[2024-07-08 15:02] LABS: IgA 144 mg/dl (70-400)
--- NOTE | 2024-07-08 23:14 | CON.CRS ---
Consultation
-
Performing Provider: Christian Leos MD
Medical History
-
History of Present Illness:
Patient is a 54-year-old male with PMH of peptic ulcer disease 20 years ago, TIA, drug abuse and recent admission for blood per rectum associated with anemia (06/28/2024 to 06/29/2024). During his recent admission, he underwent EGD and colonoscopy.
The EGD done by Dr. Layne showed a hiatal hernia, mild Schatzki ring, esophageal erythema and nodule, gastric polyps and erythematous duodenum. Biopsies were largely unremarkable. The colonoscopy done by Dr. Griffith showed large external
nonthrombosed hemorrhoids, 2 tubular adenomas and mild diverticulosis. He was discharged and recommended to follow-up with colorectal. However, he continued having bleeding with every bowel movement, seen on the toilet paper and dripping into the
toilet bowl. He does have associated dyspnea on exertion which has been ongoing for the past 1 to 2 years. He denies a sensation of prolapse, issues with itching or FI. He does have an internal discomfort with sitting. He has 1-3 BMs per day
without constipation or diarrhea, but admits to needing to strain. He had his hemorrhoids treated 4 years ago with lasers, but this did not improve his symptoms. In the ED, Hb 8.6 from 9.5.
Past Medical History
Past Medical History: Other (As above)
Past Surgical History: Other (Left BKA secondary to traumatic injury, Incision and drainage of perirectal abscess)
Social History
Tobacco: Smoker (20 years)
Alcohol: None
Drug: Former User
Personal: Partner
Living: With Family
Family History
Family History: Other (Dad with colon cancer in 60s)
Allergies / Home Medications
Allergy/AdvReac Type Severity Reaction Status Date / Time
No Known Allergies Allergy Verified 07/07/24 23:44
�Medication �Instructions �Recorded �Confirmed �Type
No Meds [No Current Medications] 07/08/24 07/08/24 History
Review of Systems
-
A 10 point review of systems was completed, and was negative except as per HPI.
Physical Exam
Vital Signs
Temp 97.8 F 07/08/24 20:10
Pulse 81 07/08/24 20:10
Resp Rate 18 07/08/24 20:10
Blood pressure 119/78 07/08/24 20:10
SaO2 99 07/08/24 20:10
07/07/24 07/08/24 07/09/24
06:59 06:59 06:59
Actual Weight 85.4 kg 81.25 kg
Body Mass Index (BMI) 26.5
Lab Results / Allergies
07/08/24 11:45
07/08/24 00:03
WBC 6.1 10^3/uL (4.8-10.8) 07/08/24 11:45
Hgb 8.9 g/dL (13.0-18.0) L 07/08/24 11:45
Hct 31.6 % (39.0-52.0) L 07/08/24 11:45
Plt Count 365 10^3/uL (130-400) 07/08/24 11:45
Abs Immat Gran (auto) 0.0 10^3/uL (0-0.05) 07/08/24 00:03
Neutrophils % 56.0 % (42.2-75.2) 07/08/24 00:03
Allergy/AdvReac Type Severity Reaction Status Date / Time
No Known Allergies Allergy Verified 07/07/24 23:44
Physical Exam
General: Well Developed, Well Nourished and No Apparent Distress
HEENT: Normocephalic and Atraumatic
Respiratory: Non Labored Respirations
GI: Soft, Non Tender and Non Distended
Rectal: Other (Swollen external components in the LLQ and RPQ; no gross blood, no palpable masses on TOBIAS)
Skin: Warm and Dry
Neuro: AO x 3
Assessment / Plan
-
54-year-old male with PMH of peptic ulcer disease 20 years ago, TIA, drug abuse and recent admission for blood per rectum associated with anemia (06/28/2024 to 06/29/2024) who presents with persistent blood per rectum and recent EGD/colonoscopy
ruling out other obvious sources. GI was consulted and felt most likely his anemia and persistent bleeding is related to hemorrhoids. In the ED, Hb 8.6 from 9.5.
� Blood per rectum most likely related to hemorrhoid source; associated with significant anemia causing dyspnea on exertion
�Discussed treatment options, including fiber supplementation/topical creams, banding as an outpatient and inpatient surgery to include THD versus surgical excision; explained the risks and benefits of each; as this seems to be a chronic issue with
progression leading to symptoms and recurrent issues, proceeding to the operating room for definitive procedure is reasonable; on the other hand, nonoperative measures have not been thoroughly trialed and would be reasonable as well; after lengthy
discussion, patient elected to proceed with surgery
� Make n.p.o. past midnight; will take for THD versus surgical excision tomorrow afternoon
� Metamucil twice daily; avoid prolonged sitting
� IS/OOB
�AM preoperative labs with CXR and EKG
�Appreciate hospitalist and GI
[2024-07-09] VITALS (8 sets, daily range): BP systolic 111–127; BP diastolic 57–85; PULSE 83–90
[2024-07-09 07:33] LABS: APTT 29.3 Sec (23.4-35.0); INR 0.94
[2024-07-09 07:39] LABS: Blood Urea Nitrogen 17 mg/dl (9-20); Calcium 8.8 mg/dl (8.4-10.2); Carbon Dioxide 24 mmol/L (22-30); Chloride 105 mmol/L (98-107); Estimated Creatinine Clearance 84 ml/min; Glucose 105 mg/dl (70-99); Potassium 4.5 mmol/L (3.5-5.1); Sodium 138 mmol/L (135-145); eGFR > 60.00
[2024-07-09 07:41] LABS: % Basophils 1.6 % (0-2); % Eosinophils 3.1 % (0-6); % Immature Granulocytes 1.1 % (0-0.5); % Lymphocytes 31.6 % (20.5-51.1); % Monocytes 7.5 % (1.7-9.3); % Neutrophils 55.1 % (42.2-75.2); Absolute Basophils 0.1 10^3/uL (0-0.2); Absolute Eosinophils 0.2 10^3/uL (0-0.7); Absolute Immature Granulocytes 0.1 10^3/uL (0-0.05); Absolute Monocytes 0.5 10^3/uL (0.1-0.6); Absolute Neutrophils 3.4 10^3/uL (1.4-6.5); Hematocrit 30.2 % (39.0-52.0); Hemoglobin 8.6 g/dL (13.0-18.0); Mean Corp Hgb Conc. 28.5 g/dL (33.0-37.0); Mean Corpuscular Hgb 19.5 pg (27.0-31.0); Mean Corpuscular Volume 68.3 fL (80.0-94.0); Mean Platelet Volume 10.4 fL (7.4-10.4); Nucleated Red Blood Cells % 0 % (-); Platelet Count 350 10^3/uL (130-400); Red Blood Cell Count 4.42 10^6/uL (4.70-6.10); Red Cell Dist. Width 22.3 % (11.5-14.5); White Blood Cell Count 6.2 10^3/uL (4.8-10.8)
[2024-07-09 08:26] LABS: Anisocytosis 1+; Hypochromasia 2+; Normal RBC Morphology No; Ovalocytes 1+; Polychromasia 1+
[2024-07-09] MEDS: PROTONIX 40 MG PO ×2 (09:20→19:47)
--- NOTE | 2024-07-09 11:55 | CM ---
Met with pt and his GF Ivanna at bedside to complete IA
Pt reports he lives in an apartment with 3 steps to enter with his GF Amanda and friend Jose
Independent at baseline and ambulation - has knee scooter (L BKA - trauma)
DME - knee scooted
SNF/ - [facility] in past for rehab and outpatient PT
Has ride at discharge
PCP - does not have PCP - given info regarding residency clinic
Pharm - [facility] - [address]
Reports having housing issues - given info - [email or web address]
Given OBS letter
Plan for OR today for surgical intervention
Plan - anticipate home no needs a this time
--- NOTE | 2024-07-09 15:28 | W.IMMPOSTOP ---
Surgical Immed Post Op Note
-
Primary Surgeon: Christian Leos MD
Assisting Surgeon: EWA Song
Pre-op Diagnosis: Bleeding hemorrhoids
Post-op Diagnosis: Bleeding internal hemorrhoids
Procedure Performed: Exam under anesthesia, excision of skin tag, transanal hemorrhoidal dearterialization x 2, suture ligation of hemorrhoid x 1, bilateral pudendal nerve block
Anesthesia Type: Sedation with spinal and local
Specimen / Cultures: Skin tag
Estimated Blood Loss: 30 mL
Complications: None
Operative Findings: On exam, long well-healed perineal scar from the base of the scrotum to the anterior midline of anal verge; associated with the scar was a small skin tag in the AML at the anal verge that I excised as it appeared to be creating a
fistula; large external hemorrhoids in the LPQ, PML, and RPQ, not irritated or bleeding; small to moderate internal hemorrhoid in the RPQ with irritation, no bleeding; performed THD; moderate sized internal hemorrhoids in the left lateral and left
posterior position, both irritated and partially prolapsing, not bleeding; performed THD; small interal hemorrhoid in the RAQ with irritation, no bleeding; performed suture ligation; mild oozing noted from LLPQ hemorrhoid, controlled with
figure-of-8 stitch; placed surgicel in anal canal; performed b/l pudendal nerve block
--- NOTE | 2024-07-09 15:44 | OR.RPT ---
Operative Report
Operative Report
DATE OF OPERATION: 07/09/2024
SURGEON: Christian Leos MD
PREOPERATIVE DIAGNOSIS: Bleeding hemorrhoids
POSTOPERATIVE DIAGNOSIS: Bleeding internal hemorrhoids
OPERATION: Exam under anesthesia, excision of skin tag, transanal hemorrhoidal dearterialization x 2, suture ligation of hemorrhoid x 1, bilateral pudendal nerve block
ASSISTANTS:
1. EWA Song
ANESTHESIA: Sedation with local and spinal
ESTIMATED BLOOD LOSS: 30 mL
FINDINGS:
1. Long well-healed scar extending midline from the base of the scrotum to the anterior midline of the anal verge; within the anal verge, there was a small skin tag forming a bridge; excised the skin tag
2. Large external hemorrhoids in the left posterolateral quadrant, right posterior quadrant, and posterior midline, not thrombosed or irritated; left in situ
3. Small to moderate-sized irritated internal hemorrhoid in the right posterior quadrant; performed THD
4. Moderate-sized irritated internal hemorrhoids with partial prolapse in the left lateral and left posterior quadrants; performed THD
5. Small irritated internal hemorrhoid in the right anterior quadrant; performed suture ligation
SPECIMENS:
1. Skin tag
DRAINS: None
COMPLICATIONS: None
INDICATIONS: The patient is a 54-year-old male who has prior history of hemorrhoids s/p office-based procedure many years ago who presented after recurrent blood per rectum. He was initially hospitalized for blood per rectum associated with
anemia. He underwent EGD and colonoscopy without evidence of a source of bleeding aside from hemorrhoids. He was discharged, but presented 1 week later with persistent bleeding and anemia. The bleeding was more typical of hemorrhoids (bright red
blood after BMs). Therefore, GI felt that his bleeding was most likely due to hemorrhoids. After discussion of operative versus nonoperative treatment measures, the patient elected to proceed with operative intervention, which I recommended as well.
I explained that a suture hemorrhoidopexy under THD guidance would be the plan for any concerning internal hemorrhoids. However, if a hemorrhoid identified on exam under anesthesia is too large for a suture hemorrhoidopexy, I would perform an
excisional hemorrhoidectomy. The operation was discussed with the patient in detail, including the risks, benefits and alternatives. Risks described included, but not limited to, bleeding, infection, urinary retention, damage to nearby structures
such as the anal sphincter, fecal incontinence, anal stenosis, recurrence, and anesthetic risks. The patient understood and agreed to proceed. The consent was signed and placed in the chart.
PROCEDURE IN DETAIL: The patient was taken to the operating room. On the bed, anesthesia performed a spinal block. The patient was placed on the operating table in prone position. Sequential compression devices were placed bilaterally. Sedation
was commenced without complication. Two seat belts were secured around the legs and upper back. The buttocks were taped apart. The perineum was shaved, prepped and draped in the usual fashion. A time-out was then performed verifying the correct
patient, procedure, operative site, positioning, and special equipment.
Local anesthesia used was a mixture of 60 mL of 0.25% Marcaine with epinephrine and 0.6 mg of dexamethasone. 40 mL was injected perianally at the beginning of the case. The anorectal exam was performed assessing all four quadrants of the anal canal
using Hill-Quach retractors in progressively increasing size. On external assessment, there was noted to be a well-healed scar, likely from his previous incision and drainage of perineal abscess, extending from the base of the scrotum along the
midline of the perineum and ending at the anal verge. At the anterior midline anal verge, there was a small pendulous skin tag forming an upside down 'U.' This was more likely a hypertrophic scar that formed with a hole as opposed to a true
fistula. There were large external hemorrhoids in the left posterolateral position and right posterior position, as well as a medium to large external hemorrhoid in the posterior position. These hemorrhoids were not irritated or thrombosed. I
felt that these were unlikely contributing to his bleeding symptoms. He had small to moderate-sized internal hemorrhoids in the right posterior position that appeared irritated, but without active bleeding. In the left lateral and left posterior
position, there were moderate-sized internal hemorrhoids that were irritated, but without active bleeding. On withdrawal of the Hill�Quach retractor, these hemorrhoids partially prolapsed. Lastly, there was a small irritated internal hemorrhoid
in the right anterior position.
I elected to excise the skin tag, possible hypertrophic scar, located in the anterior midline, in order to prevent this from creating a fistula in the future. I elevated this with forceps and excised at its base with Metzenbaum scissors, taking
care to avoid injury to the underlying sphincter. Hemostasis was assured with electrocautery.
I elected to proceed with suture ligation and hemorrhoidopexy of the moderate-sized internal hemorrhoids using THD guidance. Using the THD retractor with U/S probe, the hemorrhoid was exposed. I ligated the pedicle of the hemorrhoid after
identifying it with audible doppler signal with a 2-0 Vicryl in a figure-of-8 fashion, leaving the tail long. I took running mucosal bites of the hemorrhoid distally toward the dentate line, stopping 1 cm above the dentate line. I tied this down to
the long tail in order to pexy the hemorrhoid. Hemostasis was confirmed. The other internal hemorrhoids were ligated and pexied in a similar fashion.
For the small irritated internal hemorrhoid in the right anterior position, I performed a suture ligation as this was too small for hemorrhoidopexy. I ligated the hemorrhoid with a 2-0 Vicryl in a [id number] fashion. Hemostasis was assured.
The anal canal was irrigated copiously with saline, checking for hemostasis. There was some oozing noted from the left posterolateral internal hemorrhoid, which was controlled with an additional [id number] 2-0 Vicryl stitch. No further
bleeding was noted. The remaining 20 mL of local were injected. 5 mL was injected bilaterally for a pudendal nerve block. 10 mL was injected around the surgical site and perianally. The smallest Hill-Quach was used to check hemostasis once more,
which was confirmed. Surgicel was placed in the anal canal prophylactically.
At this point, the procedure was complete. All needle, sponge and instrument counts were correct. The patient tolerated the procedure well and was transferred to the recovery room in stable condition with gauze dressing in place secured with silk
tape.
DICTATED BY: Christian Leos MD
--- NOTE | 2024-07-09 15:55 | PTCARENOTE ---
Pt received from the PACU via bed. Transport was w/o incident. Pt is AAOX3, Pt is post spinal Anesthesia and still admits to decreased sensation to right foot, and reports starting to have sensation back to right calf. Pulses to right foot WNL. Pt
with dry dressing to rectal area, no drainage noted at this time. VSS, Pt is afebrile. Call rashid is within reach.
--- NOTE | 2024-07-09 16:17 | W.PN.HOSP.TC ---
Today's Communication/Plan
-
DC
Assessment / Plan
Assessment / Plan
Rectal bleeding-suspected hemorrhoidal -hemodynamically stable. H&H low but stable. Reviewed by colorectal surgery and had a hemorrhoidectomy this afternoon and cleared by surgery for discharge. Discharge instruction given by colorectal surgery
about follow-up on pain regimen.
Advised to follow up with repeat CBC in one week by his PCP.
Anticipated Discharge: Today
Subjective/Interval History
-
Date of Service: July 09, 2024
Patient seen in the mornings and this is late note. He was waiting for his embolectomy.
No rectal bleeding today per patient.
Objective Data
-
Labs:
Laboratory Results
07/09/24
05:31
WBC 6.2
Hgb 8.6 L
Hct 30.2 L
Plt Count 350
PT 13.0
INR 0.94
APTT 29.3
Sodium 138
Potassium 4.5
Chloride 105
Carbon Dioxide 24
BUN 17
Creatinine 1.0
Glucose 105 H
Calcium 8.8
Vital Signs:
Vital Signs
Temp Pulse Resp BP Pulse Ox
97.6 F 95 16 124/75 97
07/09/24 15:55 07/09/24 15:55 07/09/24 15:55 07/09/24 15:55 07/09/24 15:55
I&O
07/08/24 07/09/24 07/10/24
06:59 06:59 06:59
Intake Total 240 / 240 50 / 50
Output Total 450 / 450
Balance -210 / -210 50 / 50
Review of Systems
-
Constitutional: Denies Fever
Respiratory: Denies Trouble Breathing
Cardiac: Denies Chest Pain
Abdomen/GI: Denies Nausea or Vomiting
Physical Exam
-
HEENT: Moist Mucous Membranes
Respiratory: Non Labored Respirations; Negative Accessory Resp Muscle Use
Cardiac: Regular Rhythm and S1/S2; Negative Tachycardic
GI: Soft and Nontender
Neuro: AO x 3
Data Reviewed
-
Labs: Labs Reviewed by me
[2024-07-09] MEDS: TYLENOL 1000 MG PO ×2 (17:29→23:45)
[2024-07-09] MEDS: NAPROSYN 500 MG PO (19:46)
[2024-07-09] MEDS: METAMUCIL, KONSYL 1 PACKET PO (19:47)
[2024-07-09] MEDS: ROXICODONE 5 MG PO ×2 (19:47→23:45)
[2024-07-09] MEDS: DILAUDID 0.5 MG IV (21:27)
[2024-07-10] MEDS: DILAUDID 0.5 MG IV (01:55)
[2024-07-10 03:30] VITALS: BP 121/79
[2024-07-10 05:12] VITALS: BP 121/79
[2024-07-10] MEDS: TYLENOL 1000 MG PO ×2 (06:24→11:52)
[2024-07-10] MEDS: ROXICODONE 5 MG PO (06:25)
[2024-07-10 07:16] VITALS: BP 111/72
[2024-07-10] MEDS: METAMUCIL, KONSYL 1 PACKET PO (09:01)
[2024-07-10] MEDS: NAPROSYN 500 MG PO (09:01)
[2024-07-10] MEDS: PROTONIX 40 MG PO (09:01)
--- NOTE | 2024-07-10 09:44 | W.PN.CRS1 ---
Today's Communication / Plan
-
dispo planning
Assessment/Plan
-
54 yo male presenting with acute blood loss anemia secondary to bleeding from internal hemorrhoids now POD #1 Exam under anesthesia, excision of skin tag, transanal hemorrhoidal dearterialization x 2, suture ligation of hemorrhoid x 1, bilateral
pudendal nerve block
AFVSS
Doing well post procedure
--Diet as tolerated
--Reviewed post op care
--Continue analgesics/stool softeners upon d/c
--Clear for d/c from surgical standpoint
Subjective Data
Subjective Data
Date of Service: July 10, 2024
Patient seen and examined at bedside with Dr. Lopez. Passing some stool without much difficulty. Some discomfort noted. Tinges of blood but no large amounts of bleeding.
Objective Data
-
Vital Signs
Temp Pulse Resp BP Pulse Ox
97.4 F 94 20 111/72 96
07/10/24 07:16 07/10/24 07:16 07/10/24 07:16 07/10/24 07:16 07/10/24 07:16
Intake & Output
07/09/24 07/10/24 07/11/24
06:59 06:59 06:59
Intake Total 240 / 240 530 / 530
Output Total 450 / 450
Balance -210 / -210 530 / 530
Intake:
Oral fluids 240 / 240 480 / 480
IV fluids (Total) 50 / 50
normosol 50 / 50
Output:
Urine, Voided 450 / 450
Other:
Number of approximated MODERATE 1 2
amounts of urine
Lab Results
07/09/24 05:31
07/09/24 05:31
Physical Exam
-
General: No Acute Distress
Abdomen: Soft, Non Distended and Non Tender
Skin: Warm and Dry
[2024-07-10 11:53] VITALS: BP 118/77
--- NOTE | 2024-07-10 13:31 | W.DCSUMMARY ---
Discharge Summary
Discharge Data
Date of Admission: 07/08/24
Date of Discharge: 07/10/24
-
Pending Results: No
Hospital Course
Primary diagnosis:
Rectal bleeding secondary to hemorrhoids status post hemorrhoidectomy
Anemia secondary to GI blood loss
Hospital course:
Patient presented back with rectal bleeding. He recently had an admission to the hospital for rectal bleeding had an endoscopy colonoscopy which did not show any source of bleeding.
He presented back with bleeding on a daily basis especially after bowel movement. Colonoscopy had showed a thrombosed internal hemorrhoid. His hemoglobin was low but not major changes compared to recent. His hemoglobin was in around eights.
Clinical suspicion was bleeding internal hemorrhoids. Colorectal surgery was consulted at this time and the to come tomorrow to have a hemorrhoidectomy.
Patient was given postop care and follow-up instruction.
His recent iron studies last month showed severe iron deficiency anemia.
He was advised to take iron pill every day and follow-up with a CBC in a week or 2.
On the day of discharge he was without any nausea vomiting. Tolerating diet. No shortness of breath or chest pain. No abdominal pain. Hemodynamically stable. Abdomen is benign. His hemoglobin was 8.6 with normal platelets. His creatinine was
1.0.
Consultants on board:
Discharge Plan
-
Patient Disposition: Home (Routine Discharge)
Discharge Diagnosis/Procedures: Rectal bleeding - hemorrhoidal, status post embolectomy
Diet: Regular
Activity: As tolerated
Driving Restrictions: As prior to admission
Bathing Restrictions: None
Blood Work: CBC blood work on one week -arrange through your PCP
Wound Care: See Colorectal Specialist hand-out for discharge instructions.
Referrals:
Christian Leos MD [Active] - in two to four weeks
UNKNOWN - PT DOES,NOT KNOW [Family Provider] - in less than 1 week
Prescriptions:
New
naproxen [Naprosyn] 500 mg tablet
500 mg PO BID Qty: 14 0RF
oxycodone 5 mg tablet
5 mg PO Q6H PRN (Reason: Pain) Qty: 15 0RF
Metamucil Fiber Singles 3.4 gram Powder In Packet
1 packet PO BID Qty: 60 0RF
polyethylene glycol 3350 17 gram Powder In Packet
17 g PO DAILYPRN PRN (Reason: constipation) Qty: 14 0RF
ferrous sulfate 325 mg (65 mg iron) tablet
325 mg PO DAILY Qty: 30 0RF
Discharge Orders:
Discharge Patient (As Directed); Ordered 07/10/24
Ordered By: Nikolay Pierce
Discharge Date and Time
Discharge Date/Time: 07/10/24 13:08
Print Language: [place]
[2024-07-11 06:59] LABS: Endomysial IgA Antibody Titer <1:10 (<1:10)
== END 2024-07-10 13:08 | disposition home or self-care (01) ==
LOC: 2 SOUTH 04:09
PROVIDERS: Emergency Medicine; ADMITTING PHYSICIAN Internal Medicine; ATTENDING PHYSICIAN Internal Medicine; CONSULT PHYSICIAN Internal Medicine Gastroenterology; CONSULT PHYSICIAN Surgery; EMERGENCY PHYSICIAN Emergency Medicine
DX: K92.1 Melena (principal); K64.8 Other hemorrhoids; K64.4 Residual hemorrhoidal skin tags; R53.1 Weakness; D62 Acute posthemorrhagic anemia; K44.9 Diaphragmatic hernia without obstruction or gangrene; R94.31 Abnormal electrocardiogram [ECG] [EKG]; R06.02 Shortness of breath; K22.2 Esophageal obstruction; K21.00 Gastro-esophageal reflux disease with esophagitis, without bleeding; K57.30 Diverticulosis of large intestine without perforation or abscess without bleeding; F17.210 Nicotine dependence, cigarettes, uncomplicated; Z87.11 Personal history of peptic ulcer disease; Z87.19 Personal history of other diseases of the digestive system; Z89.512 Acquired absence of left leg below knee; Z86.73 Personal history of transient ischemic attack (TIA), and cerebral infarction without residual deficits; Z80.0 Family history of malignant neoplasm of digestive organs; Z80.3 Family history of malignant neoplasm of breast; Z86.0101 Personal history of adenomatous and serrated colon polyps
CPT/HCPCS: 11200; 46948; 64430 ×2; 88304; 71046; 80048; 80053; 82784; 83516; 85025; 85027; 85610; 85730; 86231; 86364; 86850; 86900; 86901; 87641; 88341; 88342; 93005; 96361; 96365; 99285; 99406; G0378; J2916

== ENCOUNTER 2024-07-23 01:17 | Inpatient (IN) | payer OTHER, SELFPAY ==
[2024-07-22] VITALS (11 sets, daily range): BP systolic 97–114; BP diastolic 59–73; BMI 21.8
[2024-07-22 15:49] LABS: APTT 30.7 Sec (23.4-35.0); INR 1.09; PT 14.4 Sec (11.4-14.6)
[2024-07-22 15:55] LABS: ALT (SGPT) 35 U/L (0-50); AST (SGOT) 30 U/L (17-59); Albumin 4.1 g/dl (3.5-5.0); Alkaline Phosphatase 92 U/L (38-126); Blood Urea Nitrogen 12 mg/dl (9-20); Calcium 8.9 mg/dl (8.4-10.2); Carbon Dioxide 21 mmol/L (22-30); Chloride 102 mmol/L (98-107); Glucose 138 mg/dl (70-99); Potassium 4.7 mmol/L (3.5-5.1); Sodium 134 mmol/L (135-145); Total Bilirubin 0.3 mg/dl (0.2-1.3); Total Protein 6.8 g/dl (6.3-8.2); eGFR > 60.00
[2024-07-22 15:57] LABS: COVID-19 Antigen Negative (Negative)
[2024-07-22 15:58] LABS: % Basophils 0.7 % (0-2); % Eosinophils 0.1 % (0-6); % Immature Granulocytes 0.5 % (0-0.5); % Lymphocytes 4.4 % (20.5-51.1); % Monocytes 3.1 % (1.7-9.3); % Neutrophils 91.2 % (42.2-75.2); Absolute Basophils 0.1 10^3/uL (0-0.2); Absolute Immature Granulocytes 0.1 10^3/uL (0-0.05); Absolute Lymphocytes 0.5 10^3/uL (1.2-3.4); Absolute Monocytes 0.3 10^3/uL (0.1-0.6); Absolute Neutrophils 9.3 10^3/uL (1.4-6.5); Hematocrit 24.5 % (39.0-52.0); Mean Corp Hgb Conc. 28.6 g/dL (33.0-37.0); Mean Corpuscular Hgb 20.3 pg (27.0-31.0); Mean Platelet Volume 9.7 fL (7.4-10.4); Nucleated Red Blood Cells % 0.2 % (-); Platelet Count 385 10^3/uL (130-400); Red Blood Cell Count 3.45 10^6/uL (4.70-6.10); Red Cell Dist. Width 24.9 % (11.5-14.5); White Blood Cell Count 10.2 10^3/uL (4.8-10.8)
[2024-07-22] MEDS: TYLENOL 1000 MG PO (18:28)
--- NOTE | 2024-07-22 18:40 | ED.GENMED ---
History of Present Illness
<Christian Knapp DO - Last Filed: 07/23/24 08:06>
General
Chief Complaint: Weakness
Source: patient
Time Seen by Provider: 07/22/24 18:32
History of Present Illness
History of Present Illness:
54-year-old male presents to the emergency room complaining of fever, chills, cough and some diarrhea. Patient also noted that he had been having some blood per rectum. The blood has been present for some time. He had surgery on July 09 for
internal hemorrhoids. He was anemic at that time and required a unit of blood. Patient has not followed up yet with colorectal surgery. Today patient felt too weak to even get out of bed.
Phy Exam
<Christian Knapp DO - Last Filed: 07/23/24 08:06>
Physical Exam
Physical Exam:
General: Awake, Alert, Oriented X3. No acute distress.
Vitals: Febrile, tachycardic
Head: Atraumatic
Eyes: Pupils equal, EOMI
Throat: Airway intact, no exudates
Neck: Trachea midline
Lungs: Clear and equal b/l
Heart: Regular rate, no murmurs
Abd: Soft, mild lower abdominal tenderness without rebound, No pulsatile mass
Neuro: Nonfocal
Skin: Warm, dry, no rash
Extremities: pulses equal b/l, no edema
Sepsis
<Christian Knapp DO - Last Filed: 07/23/24 08:06>
Sepsis Screen
Sepsis Screen: Sepsis Ruled Out
Date: 07/23/24
Time: 08:02
<Claudio Rahman MD - Last Filed: 07/23/24 04:38>
Sepsis Screening
Sepsis Assessment: Sepsis Ruled Out
Sepsis Screen
Sepsis Screen: Sepsis Ruled Out
Date: 07/23/24
Time: 04:38
Course
Allielt;Christian RoblesRoya Aria, DO - Last Filed: 07/23/24 08:06>
Orders/Labs/Results
Orders:
Orders
07/22/24 15:15
EKG [Electrocardiogram (*1)] Urgent
Reason for Study: Chest Pain
07/22/24 15:16
EKG- Treatment ONCE
CXR2 [CR Chest - 2 Views ] Urgent
Comment:
Reason For Exam: cough
07/22/24 15:22
COVID-19 Antigen Urgent
Source: Nasal Swab
Influenza A+B Rapid Molecular Urgent
[facility]IC Source: Nasal Swab
Specimen Description:
07/22/24 15:29
Type+Screen Urgent
Complete Blood Count/With Diff Urgent
Comprehensive Metabolic Panel Urgent
PTT Urgent
Prothrombin Time Urgent
07/22/24 18:25
Acetaminophen [Tylenol] 1,000 mg .ROUTE .STK-MED ONE
07/22/24 18:28
Acetaminophen [Tylenol] 1,000 mg PO NOW STA
07/22/24 18:39
Blood Bank Products [* Blood Bank Products] Urgent
Blood Bank Products: *Packed RBC Leuko(PRBC's)
Quantity: 1
Transfuse Today: Yes
Reason: Anemia
07/22/24 19:33
Ibuprofen [Motrin] 400 mg PO NOW STA
07/22/24 23:08
0.9% Sodium Chloride 1000 ml [Nss] 1,000 ml IV BOLUS
Oseltamivir Phosphate [Tamiflu] 75 mg PO NOW STA
07/23/24 00:21
Admit/Transfer Patient As Directed
Co-Sign Provider:
Level of Care: Inpatient admission
Assign to:: Telemetry
Physician / Group: Alexis
Diagnosis: GI Bleed, Influenza
Reason for Telemetry: Arrhythmia
Date to Stop Telemetry: 07/26/24
Time to Stop Telemetry: 11:00
Reason for Hospitalization: GI Bleed, Influenza
Expected length of stay greater than two midnights?: Yes
ELOS- Estimated Length of Stay in days: 3
I certify the patient meets the requirements for IP care: Yes
Code Status As Directed
Resuscitation Status: Full Code
PRN Pain Medication Management As Directed
May give lesser potent ordered pain med per pt: Yes
preference::
Protocol:: Medication orders for pain may be administered in a
manner that supports deferring to patient preference
when the pt is:
- Requesting an ordered lesser potent pain medication.
Least to most potent pain medications are defined
as: acetaminophen < NSAID < tramadol < opioids
(morphine, oxycodone, hydromorphone).
- Requesting a lesser dose of the same medication IF
ORDERED.
- Requesting a less intrusive route of administration
if both routes are prescribed by the provider (PO <
IV).
07/23/24 01:38
Acetaminophen [Tylenol] 650 mg PO Q4HPRN PRN
Albuterol [ProAIR HFA INHALER] 2 puff INH R Q4HPRN PRN
07/23/24 01:38
ColoRectal Surgery Consult Routine
Consulting Provider: Christian Leos
Was physician already notified: No
Reason for consult: Bleeding s/p Hemorrhoidectomy
Consult Notification Routine
Specialty to Notify: Colorectal Surgery
Date consulting provider notified: 07/23/24
Time consulting provider notified: 07:52
Notified:: Provider
Comment: TT'd Physician On-Call(John)
Activity As Directed
Activity Level: Ambulate
With Assistance
EKG with chest pain [ECG as needed] As Directed
ECG as needed for:: Chest Pain
I/O [Intake/ Output] As Directed
Frequency: Per unit guidelines
Orthostatic Vital Signs As Directed
Orthostatic VS Frequency: BID
Pneumatic Compression Sleeves As Directed
Type: Knee high
Precautions As Directed
Type of Precautions: Droplet
Vital Signs As Directed
Frequency: Per unit guidelines
Oxygen Therapy [O2 Therapy] [RESP] Routine
Titrate/Wean O2 to maintain O2 sat greater than (%): 94
DX Deep Vein Thrombosis Video Routine
07/23/24 05:38
Basic Metabolic Panel IN AM
Complete Blood Count/No Diff IN AM
07/23/24 Breakfast
NPO
Allow oral meds: Yes
Allow clear liquids: Sips of Clears
07/23/24 08:00
Oseltamivir Phosphate [Tamiflu] 75 mg PO BID
Pantoprazole [Protonix] 40 mg PO DAILY
07/26/24 11:00
DC Protocol for Telemetry ONCE
Abnormal Lab Results
07/22/24
15:29
RBC 3.45 L 10^6/uL
(4.70-6.10)
Hgb 7.0 L g/dL
(13.0-18.0)
Hct 24.5 L %
(39.0-52.0)
MCV 71.0 L fL
(80.0-94.0)
MCH 20.3 L pg
(27.0-31.0)
MCHC 28.6 L g/dL
(33.0-37.0)
RDW 24.9 H %
(11.5-14.5)
Abs Immat Gran (auto) 0.1 H 10^3/uL
(0-0.05)
Absolute Neuts (auto) 9.3 H 10^3/uL
(1.4-6.5)
Absolute Lymphs (auto) 0.5 L 10^3/uL
(1.2-3.4)
Neutrophils % 91.2 H %
(42.2-75.2)
Lymphocytes % 4.4 L %
(20.5-51.1)
Sodium 134 L mmol/L
(135-145)
Carbon Dioxide 21 L mmol/L
(22-30)
Glucose 138 H mg/dl
(70-99)
Crossmatch IS Only See Detail
07/22/24 15:29
07/22/24 15:29
Vital Signs
Initial and Last Documented VS:
Initial Vital Signs
Temp Pulse Resp BP Pulse Ox
103.1 F H 128 22 98/69 100
07/22/24 15:11 07/22/24 15:11 07/22/24 15:11 07/22/24 15:11 07/22/24 15:11
Last Documented Vital Signs
Temp Pulse Resp BP Pulse Ox
99.1 F 85 16 111/60 96
07/23/24 02:08 07/23/24 02:08 07/23/24 02:08 07/23/24 02:08 07/23/24 03:07
<Claudio Rahman MD - Last Filed: 07/23/24 04:38>
Orders/Labs/Results
Orders:
Orders
07/22/24 15:15
EKG [Electrocardiogram (*1)] Urgent
Reason for Study: Chest Pain
07/22/24 15:16
EKG- Treatment ONCE
CXR2 [CR Chest - 2 Views ] Urgent
Comment:
Reason For Exam: cough
07/22/24 15:22
COVID-19 Antigen Urgent
Source: Nasal Swab
Influenza A+B Rapid Molecular Urgent
ARIC Source: Nasal Swab
Specimen Description:
07/22/24 15:29
Type+Screen Urgent
Complete Blood Count/With Diff Urgent
Comprehensive Metabolic Panel Urgent
PTT Urgent
Prothrombin Time Urgent
07/22/24 18:25
Acetaminophen [Tylenol] 1,000 mg .ROUTE .STK-MED ONE
07/22/24 18:28
Acetaminophen [Tylenol] 1,000 mg PO NOW STA
07/22/24 18:39
Blood Bank Products [* Blood Bank Products] Urgent
Blood Bank Products: *Packed RBC Leuko(PRBC's)
Quantity: 1
Transfuse Today: Yes
Reason: Anemia
07/22/24 19:33
Ibuprofen [Motrin] 400 mg PO NOW STA
07/22/24 23:08
0.9% Sodium Chloride 1000 ml [Nss] 1,000 ml IV BOLUS
Oseltamivir Phosphate [Tamiflu] 75 mg PO NOW STA
07/23/24 00:21
Admit/Transfer Patient As Directed
Co-Sign Provider:
Level of Care: Inpatient admission
Assign to:: Telemetry
Physician / Group: Alexis
Diagnosis: GI Bleed, Influenza
Reason for Telemetry: Arrhythmia
Date to Stop Telemetry: 07/26/24
Time to Stop Telemetry: 11:00
Reason for Hospitalization: GI Bleed, Influenza
Expected length of stay greater than two midnights?: Yes
ELOS- Estimated Length of Stay in days: 3
I certify the patient meets the requirements for IP care: Yes
Code Status As Directed
Resuscitation Status: Full Code
PRN Pain Medication Management As Directed
May give lesser potent ordered pain med per pt: Yes
preference::
Protocol:: Medication orders for pain may be administered in a
manner that supports deferring to patient preference
when the pt is:
- Requesting an ordered lesser potent pain medication.
Least to most potent pain medications are defined
as: acetaminophen < NSAID < tramadol < opioids
(morphine, oxycodone, hydromorphone).
- Requesting a lesser dose of the same medication IF
ORDERED.
- Requesting a less intrusive route of administration
if both routes are prescribed by the provider (PO <
IV).
07/23/24 01:38
Acetaminophen [Tylenol] 650 mg PO Q4HPRN PRN
Albuterol [ProAIR HFA INHALER] 2 puff INH R Q4HPRN PRN
07/23/24 01:38
ColoRectal Surgery Consult Routine
Consulting Provider: Christian Leos
Was physician already notified: No
Reason for consult: Bleeding s/p Hemorrhoidectomy
Consult Notification Routine
Specialty to Notify: Colorectal Surgery
Date consulting provider notified: 07/23/24
Time consulting provider notified: 07:52
Notified:: Provider
Comment: TT'd Physician On-Call(John)
Activity As Directed
Activity Level: Ambulate
With Assistance
EKG with chest pain [ECG as needed] As Directed
ECG as needed for:: Chest Pain
I/O [Intake/ Output] As Directed
Frequency: Per unit guidelines
Orthostatic Vital Signs As Directed
Orthostatic VS Frequency: BID
Pneumatic Compression Sleeves As Directed
Type: Knee high
Precautions As Directed
Type of Precautions: Droplet
Vital Signs As Directed
Frequency: Per unit guidelines
Oxygen Therapy [O2 Therapy] [RESP] Routine
Titrate/Wean O2 to maintain O2 sat greater than (%): 94
DX Deep Vein Thrombosis Video Routine
07/23/24 05:38
Basic Metabolic Panel IN AM
Complete Blood Count/No Diff IN AM
07/23/24 Breakfast
NPO
Allow oral meds: Yes
Allow clear liquids: Sips of Clears
07/23/24 08:00
Oseltamivir Phosphate [Tamiflu] 75 mg PO BID
Pantoprazole [Protonix] 40 mg PO DAILY
07/26/24 11:00
DC Protocol for Telemetry ONCE
Abnormal Lab Results
07/22/24
15:29
RBC 3.45 L 10^6/uL
(4.70-6.10)
Hgb 7.0 L g/dL
(13.0-18.0)
Hct 24.5 L %
(39.0-52.0)
MCV 71.0 L fL
(80.0-94.0)
MCH 20.3 L pg
(27.0-31.0)
MCHC 28.6 L g/dL
(33.0-37.0)
RDW 24.9 H %
(11.5-14.5)
Abs Immat Gran (auto) 0.1 H 10^3/uL
(0-0.05)
Absolute Neuts (auto) 9.3 H 10^3/uL
(1.4-6.5)
Absolute Lymphs (auto) 0.5 L 10^3/uL
(1.2-3.4)
Neutrophils % 91.2 H %
(42.2-75.2)
Lymphocytes % 4.4 L %
(20.5-51.1)
Sodium 134 L mmol/L
(135-145)
Carbon Dioxide 21 L mmol/L
(22-30)
Glucose 138 H mg/dl
(70-99)
Crossmatch IS Only See Detail
07/22/24 15:29
07/22/24 15:29
Vital Signs
Initial and Last Documented VS:
Initial Vital Signs
Temp Pulse Resp BP Pulse Ox
103.1 F H 128 22 98/69 100
07/22/24 15:11 07/22/24 15:11 07/22/24 15:11 07/22/24 15:11 07/22/24 15:11
Last Documented Vital Signs
Temp Pulse Resp BP Pulse Ox
99.1 F 85 16 111/60 96
07/23/24 02:08 07/23/24 02:08 07/23/24 02:08 07/23/24 02:08 07/23/24 03:07
<Christian Knapp DO - Last Filed: 07/23/24 08:06>
MDM/Problems Addressed
Differential Diagnosis Includes:
anemia from recent surgery/residual bleeding, persistent bleeding from hemorrhoid, flu, pneumonia,
MDM/Problems Addressed:
Patient presents with malaise, fever. He had swabs performed in triage and is positive for influenza A. Patient also quite anemic with a hemoglobin of 7.0. The patient has had lower GI bleeding from internal hemorrhoids. He had surgery for this
about 2 weeks ago. He continued to have some bleeding postoperatively but it has decreased in quantity and he said no bleeding over the past 24 hours. I believe the patient is feeling poorly do a combination of anemia and influenza. Patient was
provided antipyretics here in the emergency room which helped somewhat. Will give a unit of packed red blood cells. Should the patient feel much better after transfusion he may be able to go home. However if he continues to feel poorly he will
require hospitalization. Patient signed out to Dr. Escalera at [facility].
<Christian Knapp DO - Last Filed: 07/23/24 08:06>
*Radiology
Radiology exam reviewed: radiology read reviewed
*Pulse Oximetry
Patient hypoxic: no
*EKG
Interpreted by ED Provider?: Yes
Heart Rate: 121
Rate: tachycardiac
Rhythm: sinus tachycardia
[place]: normal axis
Interval: normal interval
QRS Pattern: normal QRS
Ischemia: no ischemia
*Wet Machine Tender Interpretation
Rate: tachycardiac
Interpretation: abnormal
Heart Rate: 121
Rhythm: sinus tachycardia
<Claudio Rahman MD - Last Filed: 07/23/24 04:38>
*Critical Care Note
Total Time (30-74mins, 75-104mins- exclusive of procedures): Not Applicable
<Claudio Rahman MD - Last Filed: 07/23/24 04:38>
Update Note
Update Note:
UPDATE (Claudio Rahman MD)
I have seen and evaluated the patient after signout and reviewed all labs and imaging.
Focused HPI: 54-year-old male with recent history of hemorrhoidal bleeding and anemia requiring OR for hemorrhoid excision 07/09/[address] Leos; presents today for evaluation of generalized weakness. He has had postoperative rectal bleeding but
he says that bleeding has actually decreased gradually since the procedure. Generalized weakness however has gradually increased. Became significantly worse yesterday when he also started to develop chills and cough. Today could not even get up
and stand on his own and so EMS was called to bring him to the hospital.
Physical exam: Awake alert. Diaphoretic and pale. Borderline hypotensive 99/68. Tachycardic. Febrile.
Medical Decision Makin-year-old male presents with generalized weakness; also 24 hours of viral syndrome. He is anemic here with a hemoglobin of 7 from discharge value 8.6. Fortunately is not on blood thinners. Chemistry unremarkable. He is
positive for influenza. He was given 1 unit of PRBCs; no significant improvement subjectively�will admit for trending of hemoglobin. Regarding influenza�he is 24 hours and illness can reasonably start Tamiflu. Case discussed with hospitalist.
ED Attending Note
<Christian Knapp DO - Last Filed: 07/23/24 08:06>
-
Portions of this chart may have been created with voice recognition software.� Occasional wrong word or��sound alike� substitutions may have occurred due to the inherent limitations of voice recognition software.
Discharge Plan
Departure
Patient Disposition: Admit
Date of Disposition: 07/22/24
Time of Disposition: 23:08
Admit to doctor: Alexis
Presentation/result/management discussed w/ accepting MD/DO: Hospitalist
Discharge Problem:
Anemia, Influenza A
Interventions
Interventions:
*Risk Screen - Suicide Last Done: 07/22/24 15:11
*General Assessment Last Done: 07/22/24 18:32
*Neglect/Abuse Screening Last Done: 07/22/24 15:11
ED- Fall Risk Assessment Last Done: 07/22/24 18:32
*ED COVID-19 Vaccine History Last Done: 07/22/24 18:32
*Nursing Disposition Last Done: 07/23/24 01:45
ED- Cardiac Assessment Last Done: 07/22/24 19:00
ED- Neurological Assessment Last Done: 07/22/24 19:00
ED- Pulmonary Assessment Last Done: 07/22/24 19:00
Discharge Date and Time
Discharge Date/Time: 07/23/24 01:47
[2024-07-22] MEDS: MOTRIN 400 MG PO (19:37)
[2024-07-22] MEDS: TAMIFLU 75 MG PO (23:18)
[2024-07-22] MEDS: NSS 1000 IV (23:18)
[2024-07-23] VITALS (8 sets, daily range): BP systolic 94–127; BP diastolic 60–80; BMI 26.3
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
[2024-07-23 06:42] LABS: Hemoglobin 7.5 g/dL (13.0-18.0); Mean Corp Hgb Conc. 28.8 g/dL (33.0-37.0); Mean Corpuscular Hgb 21.2 pg (27.0-31.0); Mean Corpuscular Volume 73.7 fL (80.0-94.0); Mean Platelet Volume 10.4 fL (7.4-10.4); Platelet Count 331 10^3/uL (130-400); Red Blood Cell Count 3.53 10^6/uL (4.70-6.10); Red Cell Dist. Width 24.7 % (11.5-14.5); White Blood Cell Count 5.5 10^3/uL (4.8-10.8)
[2024-07-23 06:49] LABS: Blood Urea Nitrogen 14 mg/dl (9-20); Calcium 8.1 mg/dl (8.4-10.2); Carbon Dioxide 21 mmol/L (22-30); Chloride 104 mmol/L (98-107); Estimated Creatinine Clearance 94 ml/min; Glucose 95 mg/dl (70-99); Sodium 135 mmol/L (135-145); eGFR > 60.00
[2024-07-23] MEDS: PROTONIX 40 MG PO (07:54)
[2024-07-23] MEDS: TAMIFLU 75 MG PO ×2 (07:55→20:03)
--- NOTE | 2024-07-23 08:28 | PTCARENOTE ---
BP this AM is 94/64, Hgb 7.5 (from previous 7.0 after 1 unit PRBC). made aware, no new orders at this time.
[2024-07-23] MEDS: ROBITUSSIN DM 10 ML PO (09:18)
--- NOTE | 2024-07-23 10:39 | CON.CRS ---
Consultation
-
Date/Time Consultation Requested: 07/23/2024, 01:38
Date/Time Consultation Performed: 07/23/2024, 8:30
Requesting Provider: Kavon Espinoza DO
Performing Provider: Cm Washington MD
Reason for Consultation: post op bleeding
Medical History
-
Chief Complaint: anal bleeding
History of Present Illness:
54-year-old male, presents to [place] ER on 07/23/2024 complaining of generalized weakness, cough, and bloody stools. He underwent an excision of a skin tag and a transanal hemorrhoidal dearterialization with suture ligation of the hemorrhoid by
Dr. Christian Leos on 07/09/2024. The patient has apparently been bleeding since surgery. He started to feel weak with a cough yesterday and apparently his remade at home has been sick as well. His hemoglobin on arrival to the ER was 7.0 and he got
1 unit of packed red blood cells. This morning it is 7.5. His Tmax was 103.1 and he was tachycardic upon arrival which is now resolved. Currently he is afebrile. He was found to have influenza A and was started on Tamiflu. Currently the patient
states he has not been bleeding since his arrival. He had a bowel movement earlier this morning which was nonbloody. He has some mild pain but it is controlled. We have been consulted for further surgical opinion.
Past Medical History
Past Medical History: Other (GERD, PUD, hemorrhoids)
Past Surgical History: Other (L BKA, THD with skin tag excision - 07/09/[address] Christian Leos)
Social History
Tobacco: Smoker
Alcohol: None
Drug: None
Family History
Family History: Reviewed & Not Pertinent
Allergies / Home Medications
Allergy/AdvReac Type Severity Reaction Status Date / Time
No Known Allergies Allergy Verified 07/22/24 15:10
�Medication �Instructions �Recorded �Confirmed �Type
No Meds [No Current Medications] 07/22/24 07/22/24 History
Review of Systems
-
History Source: Patient and Family
All other systems: Negative unless noted
Constitutional: Fatigue
Respiratory: Cough
Abdomen/GI: Bloody Stools
A 10 point review of systems was completed, and was negative except as per HPI.
Physical Exam
Vital Signs
Temp 98.3 F 07/23/24 07:16
Pulse 95 07/23/24 07:16
Resp Rate 16 07/23/24 07:16
Blood pressure 94/64 07/23/24 07:16
SaO2 96 07/23/24 07:16
07/22/24 07/23/24 07/24/24
06:59 06:59 06:59
Actual Weight 80.6 kg
Body Mass Index (BMI) 26.3
Lab Results / Allergies
07/23/24 05:38
07/23/24 05:38
WBC 5.5 10^3/uL (4.8-10.8) 07/23/24 05:38
Hgb 7.5 g/dL (13.0-18.0) L 07/23/24 05:38
Hct 26.0 % (39.0-52.0) L 07/23/24 05:38
Plt Count 331 10^3/uL (130-400) 07/23/24 05:38
Abs Immat Gran (auto) 0.1 10^3/uL (0-0.05) H 07/22/24 15:29
Neutrophils % 91.2 % (42.2-75.2) H 07/22/24 15:29
Allergy/AdvReac Type Severity Reaction Status Date / Time
No Known Allergies Allergy Verified 07/22/24 15:10
Physical Exam
General: Well Developed, Well Nourished and No Apparent Distress
Rectal: Other (no active bleeding noted, TOBIAS deferred, no erythema or signs of infection noted around the anus)
Neuro: AO x 3
Psych: Calm
Data Reviewed
-
Labs: Labs Reviewed by me, Discussed with Physician and Discussed with Patient
Old Records: Reviewed
Assessment / Plan
-
Assessment: 54 yo male with recent THD and skin tag excision with persistent anal bleeding, anemia and also with concurrent influenza A
Plan:
-No plans for surgery at this time, as bleeding has stopped
-Continue to trend hemoglobin
-Okay for a regular diet
-Other medical care per primary team
-If rebleeds, will consider tranexamic acid
[2024-07-23] MEDS: TYLENOL 650 MG PO ×2 (12:06→20:03)
--- NOTE | 2024-07-23 14:20 | W.PN.UPDATE ---
Update Note
Progress Note Update
Admitted by Dr. Espinoza this morning
Patient presents with a weakness and rectal bleeding.
Diagnosed to have influenza A infection. Patient still feels weak from it. He also feels more clogged in his ear since the infection. Also feeling some wheezing. No history of asthma. Current smoker. He has occasional active wheeze
bilaterally. No respiratory distress. Not hypoxic. Add nebulizer. CW Tamiflu
Rectal bleeding on going post hemorrhoidectomy causing acute blood loss anemia . S/P PRBC transfusion yesterday . Follow HH. Await CRS input. Start on IV venofer for Iron def .
[2024-07-23] MEDS: DUONEB 3 ML INH (15:08)
[2024-07-24] VITALS (7 sets, daily range): BP systolic 96–125; BP diastolic 67–80; PULSE 75–108
[2024-07-24] MEDS: TYLENOL 650 MG PO (07:50)
[2024-07-24] MEDS: ROBITUSSIN DM 10 ML PO ×2 (07:50→17:42)
[2024-07-24] MEDS: PROTONIX 40 MG PO (07:50)
[2024-07-24] MEDS: TAMIFLU 75 MG PO ×2 (07:50→19:39)
[2024-07-24 08:33] LABS: Blood Urea Nitrogen 15 mg/dl (9-20); Calcium 8.1 mg/dl (8.4-10.2); Carbon Dioxide 24 mmol/L (22-30); Chloride 102 mmol/L (98-107); Estimated Creatinine Clearance 94 ml/min; Glucose 121 mg/dl (70-99); Potassium 3.9 mmol/L (3.5-5.1); Sodium 136 mmol/L (135-145); eGFR > 60.00
[2024-07-24 09:06] LABS: Hematocrit 27.2 % (39.0-52.0); Mean Corp Hgb Conc. 29.4 g/dL (33.0-37.0); Mean Corpuscular Hgb 21.3 pg (27.0-31.0); Mean Corpuscular Volume 72.3 fL (80.0-94.0); Mean Platelet Volume 10.1 fL (7.4-10.4); Platelet Count 314 10^3/uL (130-400); Red Blood Cell Count 3.76 10^6/uL (4.70-6.10); Red Cell Dist. Width 24.3 % (11.5-14.5)
--- NOTE | 2024-07-24 12:17 | CON.MD ---
Consultation - Medical
-
dictated.
L ear cerumen disimpacted.
continue debrox/peroxide, OK to irrigate ears, avoid qtips, f/u 3-4 mo.
--- NOTE | 2024-07-24 12:39 | W.PN.HOSP.TC ---
Today's Communication/Plan
-
DC planning
Assessment / Plan
Assessment / Plan
A/P: Patient is a 54y M with PMH significant for recent hemorrhoidectomy who presents to ED complaining of bloody stools, cough and fatigue.
Acute Blood Loss Anemia
Rectal bleeding
Hemorrhoids s/p recent Surgery
GERD / PUD
- Hgb today is 7 g/dL with recent discharge value of 8.6.
- S/p 1 unit of transfusion on this admission. Hemoglobin up at 8.0.
- Follow H&H and provide additional PRBCs if needed.
- Colorectal following
- Iron def on recent blood work noted-continue with IV iron.
Influenza A
Sepsis secondary to the above
- Unvaccinated host.
- Patient presents with fever, tachycardia and tachypnea with positive influenza assay in the ED.
- Febrile to 103 here in the ED without hypoxemia / dyspnea.
- Tamiflu x 5 days. Supportive care. Improved clinically. No active bronchospasm.
- Follow proper precautions.
Left ear pain status post secondary to cerumen impaction which is now disimpacted by ENT. Continue Debrox eardrops.
DVT Prophylaxis: SCDs
Code Status: Full
DC home when okay from colorectal surgery standpoint
Anticipated Discharge: Today
Subjective/Interval History
-
Date of Service: July 24, 2024
Left ear pain feels better after cerumen disimpaction.
No fevers. Improved fatigue. Denies shortness of breath at rest. Has not had a rectal bleeding.
Objective Data
-
Labs:
Laboratory Results
07/24/24
07:25
WBC 4.0 L
Hgb 8.0 L
Hct 27.2 L
Plt Count 314
Sodium 136
Potassium 3.9
Chloride 102
Carbon Dioxide 24
BUN 15
Creatinine 0.9
Glucose 121 H
Calcium 8.1 L
Vital Signs:
Vital Signs
Temp Pulse Resp BP Pulse Ox
97.9 F 91 16 110/80 97
07/24/24 11:10 07/24/24 07:13 07/24/24 07:13 07/24/24 07:13 07/24/24 11:10
I&O
07/23/24 07/24/24 07/25/24
06:59 06:59 06:59
Intake Total 1700 / 1700 500 / 500 480 / 480
Output Total 650 / 650 290 / 290 275 / 275
Balance 1050 / 1050 210 / 210 205 / 205
Review of Systems
-
Constitutional: Denies Fever
Respiratory: Reports Cough; Denies Trouble Breathing
Cardiac: Denies Chest Pain
Abdomen/GI: Denies Abdominal Pain, Nausea or Vomiting
Neuro: Denies Dizzy
Physical Exam
-
General: Comfortable
Respiratory: Non Labored Respirations; Negative Wheezes or Accessory Resp Muscle Use
Cardiac: Regular Rhythm and S1/S2
GI: Soft and Nontender
Neuro: AO x 3
Data Reviewed
-
Labs: Labs Reviewed by me
--- NOTE | 2024-07-24 13:38 | W.PN.CRS1 ---
Addendum entered and electronically signed by Shaheed Joseph MD 07/24/24 14:56:
I saw and examined the patient.
The Square Dance Caller's note was reviewed and I agree with the note.
Comment: Clinically well, reassured the first few BMs may be bloody. HD stable, Hb stable. Exam approp. Will monitor until tomorrow, if no further issues expect he will be ready for DC. C/o left ear 'fullness,' ENT team will see today
Original Note:
Today's Communication / Plan
-
follow cbc in am
Assessment/Plan
-
54 yo male presenting with acute blood loss anemia secondary to bleeding from internal hemorrhoids in setting of Flu A
admitted earlier this month for the same and underwent exam under anesthesia, excision of skin tag, transanal hemorrhoidal dearterialization x 2, suture ligation of hemorrhoid x 1, bilateral pudendal nerve block (07/09/24)
AFVSS
H/H stable
--Diet as tolerated
--Stool softeners prn
--Anticipate ready for d/c tomorrow if no further bleeding
Subjective Data
Subjective Data
Date of Service: July 24, 2024
Patient seen and examined at bedside with Dr. Joseph. Has passed some loose stools but no blood noted. Denies pain.
Objective Data
-
Vital Signs
Temp Pulse Resp BP Pulse Ox
97.9 F 91 16 110/80 97
07/24/24 11:10 07/24/24 07:13 07/24/24 07:13 07/24/24 07:13 07/24/24 11:10
Intake & Output
07/23/24 07/24/24 07/25/24
06:59 06:59 06:59
Intake Total 1700 / 1700 500 / 500 480 / 480
Output Total 650 / 650 290 / 290 275 / 275
Balance 1050 / 1050 210 / 210 205 / 205
Intake:
Oral fluids 200 / 200 500 / 500 480 / 480
IV fluids (Total) 1000 / 1000
nss 1000 / 1000
Blood Products 250 / 250
Packed red blood cells 250 / 250
Blood Product Amount Infused ( 250 / 250
mL)
Packed Rbc Leukoreduced Unit 250 / 250
[id number]
Output:
Urine, Voided 650 / 650 290 / 290 275 / 275
Other:
Number of approximated MODERATE 1
amounts of urine
Lab Results
07/24/24 07:25
07/24/24 07:25
Physical Exam
-
General: No Acute Distress
Abdomen: Soft, Non Distended and Non Tender
Skin: Warm and Dry
--- NOTE | 2024-07-24 13:56 | CM ---
Addendum entered by Grisel Cardenas RN 07/24/24 15:51:
IMM reviewed.
Original Note:
Reviewed the chart notes and spoke with the patient at the bedside. The patient rents a room in a one story home with his girlfriend. There are two steps to enter. The patient has a knee scooter. Patient with L BKA. The patient reports no SNF
or VN in the past. Patient confirmed his [facility] of choice [facility]. CM continues to be available to patient/family and is monitoring medical plan for needs at discharge.
Plan: Discharge to home when medically stable. No needs anticipated.
[2024-07-24] MEDS: FERRLECIT 110 MG IV (13:57)
[2024-07-25] VITALS (7 sets, daily range): BP systolic 96–129; BP diastolic 57–86; PULSE 93–109
[2024-07-25] MEDS: ROBITUSSIN DM 10 ML PO ×2 (03:39→14:26)
[2024-07-25 07:43] LABS: Hematocrit 25.4 % (39.0-52.0); Hemoglobin 7.5 g/dL (13.0-18.0); Mean Corp Hgb Conc. 29.5 g/dL (33.0-37.0); Mean Corpuscular Hgb 21.1 pg (27.0-31.0); Mean Corpuscular Volume 71.5 fL (80.0-94.0); Mean Platelet Volume 10.8 fL (7.4-10.4); Platelet Count 311 10^3/uL (130-400); Red Blood Cell Count 3.55 10^6/uL (4.70-6.10); Red Cell Dist. Width 24.1 % (11.5-14.5); White Blood Cell Count 4.4 10^3/uL (4.8-10.8)
[2024-07-25] MEDS: TAMIFLU 75 MG PO ×2 (09:05→19:47)
[2024-07-25] MEDS: PROTONIX 40 MG PO (09:06)
--- NOTE | 2024-07-25 09:15 | W.PN.HOSP.TC ---
Today's Communication/Plan
-
Follow if any recurrent rectal bleeding with bowel movement today.
Follow H&H closely.
Continue with IV iron.
Continue with Tamiflu.
Assessment / Plan
Assessment / Plan
A/P: Patient is a 54y M with PMH significant for recent hemorrhoidectomy who presents to ED complaining of bloody stools, cough and fatigue.
Acute Blood Loss Anemia
Rectal bleeding
Hemorrhoids s/p recent Surgery
GERD / PUD
- Hgb on adx was 7 g/dL with recent discharge value of 8.6.
- S/p 1 unit of transfusion on this admission. Hemoglobin up at 8.0 but today down to 7.5 but no external bleeding. Not SOB or with CP. Tx for HH <7.0
- Follow H&H and provide additional PRBCs if needed.
- CRS following
- I jos johnson on recent blood work noted-continue with IV iron.
Influenza A
Sepsis secondary to the above
- Unvaccinated host.
- Patient presents with fever, tachycardia and tachypnea with positive influenza assay in the ED.
- Febrile to 103 here in the ED without hypoxemia / dyspnea.
- Tamiflu x 5 days. Supportive care. Improved clinically. No active bronchospasm.No fevers
- Follow proper precautions.
Left ear pain status post secondary to cerumen impaction which is now disimpacted by ENT. Continue Debrox eardrops.
DVT Prophylaxis: SCDs
Code Status: Full
DC home when okay from colorectal surgery standpoint
Anticipated Discharge: Within 24 hours
Subjective/Interval History
-
Date of Service: July 25, 2024
Ongoing cough but not much productive. Feels congested.
Denies shortness of breath.
No nausea vomiting or abdominal pain. Has not had a bowel movement since yesterday. No rectal bleeding noted.
Objective Data
-
Labs:
Laboratory Results
07/25/24
06:51
WBC 4.4 L
Hgb 7.5 L
Hct 25.4 L
Plt Count 311
Vital Signs:
Vital Signs
Temp Pulse Resp BP Pulse Ox
98.3 F 78 16 117/72 97
07/25/24 07:20 07/25/24 07:20 07/25/24 07:20 07/25/24 07:20 07/25/24 07:20
I&O
07/24/24 07/25/24 07/26/24
06:59 06:59 06:59
Intake Total 500 / 500 1810 / 1810
Output Total 290 / 290 275 / 275
Balance 210 / 210 1535 / 1535
Review of Systems
-
Constitutional: Denies Fever
Cardiac: Denies Chest Pain
Neuro: Denies Dizzy
Physical Exam
-
General: Comfortable
Respiratory: Rhonchi (BL) and Non Labored Respirations; Negative Accessory Resp Muscle Use
Cardiac: Regular Rhythm and S1/S2; Negative Tachycardic
GI: Soft, Nontender, Nondistended and Normal Bowel Sounds
Neuro: AO x 3
Data Reviewed
-
Labs: Labs Reviewed by me
[2024-07-25] MEDS: MIRALAX 17 GRAMS PO (09:29)
[2024-07-25] MEDS: TESSALON PERLES 100 MG PO (09:30)
--- NOTE | 2024-07-25 12:00 | W.PN.CRS1 ---
Addendum entered and electronically signed by Shaheed Joseph MD 07/25/24 13:22:
I saw and examined the patient.
The Disease Case Manager Rn's note was reviewed and I agree with the note.
Comment: Denies bpr, denies passing BM, flu like symptoms persist, belly soft, nd nt. Hb trended down today. Cont inpatient observation. [email or web address]@MN to preserve the option of surgery, in case an indication for that arises
Original Note:
Today's Communication / Plan
-
bowel regimen
trend h/h
Assessment/Plan
-
54 yo male presenting with acute blood loss anemia secondary to bleeding from internal hemorrhoids in setting of Flu A
admitted earlier this month for the same and underwent exam under anesthesia, excision of skin tag, transanal hemorrhoidal dearterialization x 2, suture ligation of hemorrhoid x 1, bilateral pudendal nerve block (07/09/24)
AFVSS
H/H stable with slight drift today
Episodes of bleeding with stool and has not yet passed a BM
--Diet as tolerated
--Stool softeners scheduled and prn
--Trend labs, follow for passage of stool
Subjective Data
Subjective Data
Date of Service: July 25, 2024
Patient seen and examined at bedside with Dr. Joseph. Denies n/v. Tolerating diet. Loose cough and still feels general malaise. No BM since initial episode of bleeding.
Objective Data
-
Vital Signs
Temp Pulse Resp BP Pulse Ox
97.9 F 89 16 118/73 97
07/25/24 11:27 07/25/24 11:27 07/25/24 11:27 07/25/24 11:27 07/25/24 11:27
Intake & Output
07/24/24 07/25/24 07/26/24
06:59 06:59 06:59
Intake Total 500 / 500 1810 / 1810
Output Total 290 / 290 275 / 275
Balance 210 / 210 1535 / 1535
Intake:
Oral fluids 500 / 500 1700 / 1700
IV piggybacks 110 / 110
Output:
Urine, Voided 290 / 290 275 / 275
Other:
Number of approximated MODERATE 1 3
amounts of urine
Lab Results
07/25/24 06:51
07/24/24 07:25
Physical Exam
-
General: No Acute Distress and Mild Distress
HEENT: Grossly Normal
Abdomen: Soft, Non Distended and Non Tender
Extremities: Other
Skin: Warm and Dry
[2024-07-25] MEDS: FERRLECIT 110 MG IV (14:17)
--- NOTE | 2024-07-26 02:51 | PTCARENOTE ---
Pt. reports having 3 soft but formed stools tonight (he flushed and reported later) - states he didn't see 'a drop of blood'. NPO status maintained, CBC ordered for AM.
[2024-07-26 02:53] VITALS: BP 107/66
[2024-07-26 06:42] LABS: Hematocrit 26.2 % (39.0-52.0); Hemoglobin 7.5 g/dL (13.0-18.0); Mean Corp Hgb Conc. 28.6 g/dL (33.0-37.0); Mean Corpuscular Hgb 20.9 pg (27.0-31.0); Mean Platelet Volume 10.2 fL (7.4-10.4); Platelet Count 338 10^3/uL (130-400); Red Blood Cell Count 3.59 10^6/uL (4.70-6.10); Red Cell Dist. Width 24.6 % (11.5-14.5); White Blood Cell Count 4.2 10^3/uL (4.8-10.8)
[2024-07-26 07:06] VITALS: BP 113/70
[2024-07-26] MEDS: TAMIFLU 75 MG PO (08:39)
[2024-07-26] MEDS: PROTONIX 40 MG PO (08:39)
[2024-07-26] MEDS: MIRALAX PO (08:39)
[2024-07-26] MEDS: TESSALON PERLES 100 MG PO (08:46)
--- NOTE | 2024-07-26 09:07 | W.PN.HOSP.TC ---
Today's Communication/Plan
-
Discharge planning today
Assessment / Plan
Assessment / Plan
Physical exam:
General: Well Developed, Well Nourished and No Apparent Distress
HEENT: Normocephalic, Atraumatic and Moist Mucous Membranes
Respiratory: Clear to Auscultation; Negative Wheezes, Rales or Rhonchi
Cardiac: Regular Rhythm and S1/S2
GI: Soft, Nontender and Nondistended
Musculoskeletal: No Clubbing, No Cyanosis and No Edema
Neuro: Awake, Alert and Oriented
Psych: Calm
A/P: Patient is a 54y M with PMH significant for recent hemorrhoidectomy who presents to ED complaining of bloody stools, cough and fatigue.
Acute Blood Loss Anemia
Rectal bleeding
Hemorrhoids s/p recent Surgery
GERD / PUD
Colorectal surgery cleared her for discharge
Hemoglobin 7.5 today
Discussed with patient and significant other at bedside.
Plan to discharge today
Prior to today:
- Hgb on adx was 7 g/dL with recent discharge value of 8.6.
- S/p 1 unit of transfusion on this admission. Hemoglobin up at 8.0 but today down to 7.5 but no external bleeding. Not SOB or with CP. Tx for HH <7.0
- Follow H&H and provide additional PRBCs if needed.
- CRS following
- I jos johnson on recent blood work noted-continue with IV iron.
Influenza A
Sepsis secondary to the above
- Unvaccinated host.
- Patient presents with fever, tachycardia and tachypnea with positive influenza assay in the ED.
- Febrile to 103 here in the ED without hypoxemia / dyspnea.
- Tamiflu x 5 days. Supportive care. Improved clinically. No active bronchospasm.No fevers
- Follow proper precautions.
Left ear pain status post secondary to cerumen impaction which is now disimpacted by ENT. Continue Debrox eardrops.
DVT Prophylaxis: SCDs
Code Status: Full
Anticipated Discharge: Today
Subjective/Interval History
-
Date of Service: July 26, 2024
Patient feels well
Objective Data
-
Labs:
Laboratory Results
07/26/24
06:15
WBC 4.2 L
Hgb 7.5 L
Hct 26.2 L
Plt Count 338
Vital Signs:
Vital Signs
Temp Pulse Resp BP Pulse Ox
98.4 F 73 18 113/70 98
07/26/24 07:06 07/26/24 07:06 07/26/24 07:06 07/26/24 07:06 07/26/24 07:06
I&O
07/25/24 07/26/24 07/27/24
06:59 06:59 06:59
Intake Total 1810 / 1810 1010 / 1010
Output Total 275 / 275
Balance 1535 / 1535 1010 / 1010
--- NOTE | 2024-07-26 09:29 | W.PN.CRS1 ---
Today's Communication / Plan
-
As below
Assessment/Plan
-
54-year-old male with PMH of peptic ulcer disease 20 years ago, TIA, drug abuse, admission for blood per rectum associated with anemia (06/28/2024 to 06/29/2024), s/p EGD and colonoscopy without obvious bleeding source, presented again for
persistent bleeding on 07/08/2024 and underwent THD x 2, suture ligation x 2 of internal hemorrhoids, discharged on 07/10, who presents with fever and fatigue, as well as daily bleeding since surgery, found to have influenza A and Hb of 7.0 (Hb was 8.6
on DC last admission), s/p pRBC x 1 and Tamiflu
AFVSS
Hb 7.5 from 7.5
� Continue regular diet, recommend high-fiber diet with fiber supplement daily
� Pain control with Tylenol as needed and Motrin as needed
� Continue holding DVT PPx as patient is ambulatory and expected for discharge today
� Appreciate hospitalist
Dispo�okay for DC from colorectal standpoint, recommend follow-up in 2 to 4 weeks
Subjective Data
Subjective Data
Date of Service: July 26, 2024
No acute events. No further bleeding per rectum.
3 BMs yesterday without blood. Tolerating diet.
Feeling better from URI standpoint.
Objective Data
-
Vital Signs
Temp Pulse Resp BP Pulse Ox
98.4 F 73 18 113/70 98
07/26/24 07:06 07/26/24 07:06 07/26/24 07:06 07/26/24 07:06 07/26/24 07:06
Intake & Output
07/25/24 07/26/24 07/27/24
06:59 06:59 06:59
Intake Total 1810 / 1810 1010 / 1010
Output Total 275 / 275
Balance 1535 / 1535 1010 / 1010
Intake:
Oral fluids 1700 / 1700 900 / 900
IV piggybacks 110 / 110 110 / 110
Output:
Urine, Voided 275 / 275
Other:
Number of approximated MODERATE 3 3
amounts of urine
Lab Results
07/26/24 06:15
07/24/24 07:25
Physical Exam
-
General: No Acute Distress and AOx3
HEENT: Grossly Normal
Abdomen: Soft, Non Distended and Non Tender
Skin: Warm and Dry
--- NOTE | 2024-07-26 14:17 | W.DCSUMMARY ---
Discharge Summary
Discharge Data
Date of Admission: 07/23/24
Date of Discharge: 07/26/24
-
Pending Results: No
Hospital Course
Patient 54 years old who is status post THD procedure for hemorrhoids and came into the hospital with recurrent rectal bleeding since his operation. Colorectal surgery consulted. He was transfused with blood. Colorectal surgery felt that there
was no need for any intervention and he was treated conservatively. He did have influenza A and he was treated with Tamiflu. He is hemoglobin was monitored and given some IV iron. He also had some cerumen impaction for which ENT was consulted and
he was disimpacted. Hemoglobin 7.5 upon discharge and instructed him to follow-up CBC as outpatient within 1 week. Otherwise, patient hemodynamically stable and eager to go home today. Colorectal surgery cleared him for discharge. He will be
discharged in stable condition today.
Discharge duration: 35 minutes
Discharge Plan
-
Patient Disposition: Home (Routine Discharge)
Discharge Diagnosis/Procedures: Influenza A. Acute blood loss anemia. Hemorrhoidal bleeding.
Diet: Regular
Activity: As tolerated
Blood Work: PCP AND/OR COLORECTAL SURGERY TO ORDER CBC WITHIN 1 WEEK
Referrals:
Primary care, provider [Other] (within 1 to 2 weeks)
Christian Leos MD [Active] - in two weeks
Prescriptions:
New
polyethylene glycol 3350 17 gram Powder In Packet
17 g PO DAILY 14 Days Qty: 14 0RF
benzonatate 100 mg Capsule
100 mg PO TIDPRN PRN (Reason: cough) Qty: 14 0RF
oseltamivir 75 mg Capsule
75 mg PO BID 2 Days Qty: 4 0RF
Discharge Orders:
Discharge Patient (As Directed); Ordered 07/26/24
Ordered By: Kurt Gaxiola
Discharge Date and Time
Discharge Date/Time: 07/26/24 15:00
Print Language: CAP[place]
--- NOTE | 2024-07-26 14:28 | CM ---
Met with patient
Patient discharged today
No needs
PLAN: home, no needs
girlfriend to transport
--- NOTE | 2024-07-26 14:49 | PTCARENOTE ---
d/c instructions read to pt and pt verbalized understanding. iv and tele removed. pt left w/ belongings from room and d/c instructions. pt left via wheelchair w/ staff member.
[2024-07-26] MEDS: FERRLECIT IV (14:53)
[2024-07-26 14:57] VITALS: BP 116/78
== END 2024-07-26 15:00 | disposition home or self-care (01) | DRG 919 ==
LOC: 2 NORTH 01:17
PROVIDERS: Internal Medicine; ADMITTING PHYSICIAN Hospitalist; ATTENDING PHYSICIAN Hospitalist; CONSULT PHYSICIAN Otolaryngology; EMERGENCY PHYSICIAN Emergency Medicine; OTHER PHYSICIAN Surgery
PROC: 30233N1 Transfusion of Nonautologous Red Blood Cells into Peripheral Vein, Percutaneous Approach (ICD-10-PCS; 2024-07-22)
PROC: 09C4XZZ Extirpation of Matter from Left External Auditory Canal, External Approach (ICD-10-PCS; 2024-07-24)
DX: K91.840 Postprocedural hemorrhage of a digestive system organ or structure following a digestive system procedure (principal); A41.89 Other specified sepsis; D62 Acute posthemorrhagic anemia; K21.9 Gastro-esophageal reflux disease without esophagitis; J10.1 Influenza due to other identified influenza virus with other respiratory manifestations; F17.210 Nicotine dependence, cigarettes, uncomplicated; H61.22 Impacted cerumen, left ear; H90.2 Conductive hearing loss, unspecified; K64.8 Other hemorrhoids; Z89.512 Acquired absence of left leg below knee; Z20.822 Contact with and (suspected) exposure to COVID-19; Y83.8 Other surgical procedures as the cause of abnormal reaction of the patient, or of later complication, without mention of misadventure at the time of the procedure
CPT/HCPCS: 36430; 71046; 80048; 80053; 85025; 85027; 85610; 85730; 86850; 86900; 86901; 86920; 87502; 87811; 93005; 94640; 96360; 96361; 99291; 99406; J2916; P9016

== ENCOUNTER 2024-08-12 02:11 | Emergency (ER) | payer OTHER, SELFPAY ==
[2024-08-12 02:14] VITALS: BP 124/92
[2024-08-12 03:32] VITALS: BMI 26.3
[2024-08-12 03:52] LABS: % Basophils 1.4 % (0-2); % Eosinophils 1.8 % (0-6); % Immature Granulocytes 0.4 % (0-0.5); % Monocytes 11.6 % (1.7-9.3); % Neutrophils 53.8 % (42.2-75.2); Absolute Basophils 0.1 10^3/uL (0-0.2); Absolute Eosinophils 0.1 10^3/uL (0-0.7); Absolute Lymphocytes 1.6 10^3/uL (1.2-3.4); Absolute Monocytes 0.6 10^3/uL (0.1-0.6); Absolute Neutrophils 2.7 10^3/uL (1.4-6.5); Hematocrit 29.5 % (39.0-52.0); Hemoglobin 8.6 g/dL (13.0-18.0); Mean Corp Hgb Conc. 29.2 g/dL (33.0-37.0); Mean Corpuscular Hgb 20.4 pg (27.0-31.0); Mean Corpuscular Volume 69.9 fL (80.0-94.0); Nucleated Red Blood Cells % 0 % (-); Platelet Count 418 10^3/uL (130-400); Red Blood Cell Count 4.22 10^6/uL (4.70-6.10); Red Cell Dist. Width 22.1 % (11.5-14.5); White Blood Cell Count 5.1 10^3/uL (4.8-10.8)
[2024-08-12 03:56] LABS: COVID-19 Antigen Negative (Negative)
[2024-08-12 04:11] LABS: ALT (SGPT) 32 U/L (0-50); AST (SGOT) 26 U/L (17-59); Albumin 3.8 g/dl (3.5-5.0); Alkaline Phosphatase 92 U/L (38-126); Blood Urea Nitrogen 21 mg/dl (9-20); Calcium 9.4 mg/dl (8.4-10.2); Carbon Dioxide 26 mmol/L (22-30); Chloride 106 mmol/L (98-107); Estimated Creatinine Clearance 94 ml/min; Glucose 95 mg/dl (70-99); Sodium 140 mmol/L (135-145); Total Bilirubin 0.3 mg/dl (0.2-1.3); Total Protein 6.4 g/dl (6.3-8.2); eGFR > 60.00
[2024-08-12] MEDS: DUONEB 3 ML INH (05:07)
[2024-08-12] MEDS: TESSALON PERLES 100 MG PO (05:40)
--- NOTE | 2024-08-12 05:51 | ED.GENMED ---
History of Present Illness
General
Chief Complaint: Cough
Source: patient and previous hospital records (Multiple recent hospitalizations reviewed)
Exam Limitations: none
Time Seen by Provider: 08/12/24 03:26
Nursing documentation reviewed up to this point in time: agreed with
History of Present Illness
History of Present Illness:
This is a 54-year-old gentleman who has been hospitalized multiple times since May initially with rectal bleeding. Underwent endoscopy and colonoscopy and of May showing internal hemorrhoids. No evidence of active bleeding. He continued
with intermittent rectal bleeding hospitalized July 08 to July 10 and underwent hemorrhoidectomy July 09. Despite this procedure continued with some rectal bleeding intermittently and was hospitalized July 23 to July 26, received a
blood transfusion for hemoglobin of 7.0, also received IV iron. Was also noted to be positive for influenza A and started on Tamiflu during that hospitalization. Discharge hemoglobin on July 26 was 7.5.
He has been compliant with oral iron. Since discharge the he has completed a course of Tamiflu. He has had no recurrent rectal bleeding. He has been moving his bowels well, appetite has been good but does note continued cough, hacking at
times occasionally productive of yellowish phlegm and somewhat worse over the past 2 days, worse at nighttime. He also is concerned with generalized fatigue.
He denies chest pain, no leg pain or swelling, no palpitations, no shortness of breath. He has not had a fever nor chills.
Past History
Past History
ED Past Medical History: GERD, Other (Rectal bleeding related to internal hemorrhoids. Symptomatic anemia requiring transfusion and IV iron June 2024.) and Other (Acute influenza A June 2024)
ED Past Surgical History: Orthopedic (Left BKA related to trauma) and Other (Hemorrhoidectomy July 09, 2024)
Social History
Tobacco: Smoker
Alcohol: None
Drug: None
Personal: Single
Living: with family
Employment: Not employed
Family History
Family History: Cancer
Phy Exam
Physical Exam
Physical Exam:
GENERAL: 54-year-old gentleman appears his stated age, awake and alert, pleasant, appears in no acute distress. Speaking in full sentences without difficulty. Rare brief dry cough is noted. Respirations are easy and nonlabored.
EYE: pupils equal and reactive. anicteric
NECK: Supple, nontender, no meningismus, no significant adenopathy.
ENT: posterior pharynx is clear, oral mucosa is moist. TM clear b/l, nares patent.
CARDIAC: Regular rate and rhythm. no murmur.
LUNGS: Clear breath sounds bilaterally, no acute respiratory distress, no wheezes/rales/rhonchi
ABDOMEN: Soft, nondistended, without focal tenderness, no r/g, no cvat. normoactive BS.
NEUROLOGICAL: Alert and oriented x3, no focal neuro deficits.
SKIN: Warm and dry, normal color, skin intact. No rash.
MUSCULOSKELETAL: No C/C/E. peripheral pulses are full and equal b/l. Left BKA.
PSYCH: Normal and appropriate interaction.
Course
Orders/Labs/Results
Orders:
Orders
08/12/24 02:23
CR Chest - 2 Views Urgent
Comment:
Reason For Exam: cough
08/12/24 03:27
COVID-19 Antigen Urgent
Source: Nasal Swab
Complete Blood Count/With Diff Urgent
Comprehensive Metabolic Panel Urgent
Influenza A+B Rapid Molecular Urgent
AIRC Source: Nasal Swab
Specimen Description:
08/12/24 04:47
Ipratropium/Albuterol Sulfate [Duoneb] 3 ml INH R NOW STA
08/12/24 05:35
Benzonatate [Tessalon Perles] 100 mg .ROUTE .STK-MED ONE
08/12/24 05:40
Benzonatate [Tessalon Perles] 100 mg PO ONCE ONE
Abnormal Lab Results
08/12/24
03:27
RBC 4.22 L 10^6/uL
(4.70-6.10)
Hgb 8.6 L g/dL
(13.0-18.0)
Hct 29.5 L %
(39.0-52.0)
MCV 69.9 L fL
(80.0-94.0)
MCH 20.4 L pg
(27.0-31.0)
MCHC 29.2 L g/dL
(33.0-37.0)
RDW 22.1 H %
(11.5-14.5)
Plt Count 418 H 10^3/uL
(130-400)
Monocytes % 11.6 H %
(1.7-9.3)
BUN 21 H mg/dl
(9-20)
08/12/24 03:27
08/12/24 03:27
Vital Signs
Initial and Last Documented VS:
Initial Vital Signs
Temp Pulse Resp BP Pulse Ox
98.2 F 102 24 124/92 99
08/12/24 02:14 08/12/24 02:14 08/12/24 02:14 08/12/24 02:14 08/12/24 02:14
Last Documented Vital Signs
Temp Pulse Resp BP Pulse Ox
98.2 F 102 24 124/92 99
08/12/24 02:14 08/12/24 02:14 08/12/24 02:14 08/12/24 02:14 08/12/24 02:14
MDM/Problems Addressed
Differential Diagnosis Includes:
Concern for reactive airway disease related to recent influenza, concern for secondary pneumonia. Concern for recurrent occult GI bleeding/recurrent/symptomatic anemia.
Will check chest x-ray, labs.
Will trial DuoNeb nebulizer.
Chronic conditions affecting care: Other (History of GI bleed, symptomatic anemia. Recent influenza A)
*Radiology
Radiology exam reviewed: preliminary read by ED provider (Chest x-ray is unremarkable, previous bilateral lower lobe atelectasis has resolved. No evidence of infiltrate.)
*Pulse Oximetry
Patient hypoxic: no
*Critical Care Note
Total Time (30-74mins, 75-104mins- exclusive of procedures): Not Applicable
Update Note
Update Note:
05:45
Patient feeling improved after DuoNeb nebulizer, marked improvement in cough. Lungs remain clear to auscultation.
Chest x-ray is unremarkable.
Labs show moderate anemia but hemoglobin has improved from 7.5 to now 8.6.
Chemistries are unremarkable. COVID testing is negative. Rapid flu is negative as expected.
Will discharge to home with prescription for albuterol inhaler for as needed cough. Will also prescribe Tessalon for as needed cough.
Recommend he continue his oral iron supplements, continue PPI.
Recommend follow-up with PCP for recheck. Patient has been referred to our family practice residency clinic.
ED Attending Note
-
Portions of this chart may have been created with voice recognition software.� Occasional wrong word or��sound alike� substitutions may have occurred due to the inherent limitations of voice recognition software.
Discharge Plan
Departure
Patient Disposition: Home (Routine Discharge)
Date of Disposition: 08/12/24
Time of Disposition: 05:51
Patient with high blood pressure during this ER visit?: No
Condition: Good
Discharge Problem:
Subacute cough, resolving anemia
Instructions: Cough, Adult (DC)
Prescriptions:
New
albuterol sulfate 90 mcg/actuation aerosol powdr breath activated
2 inh inhalation Q6H PRN (Reason: cough, wheezing) Qty: 1 0RF
benzonatate 200 mg capsule
200 mg PO TID PRN (Reason: cough) Qty: 30 0RF
No Action
polyethylene glycol 3350 17 gram Powder In Packet
17 g PO DAILY 14 Days Qty: 14 0RF
benzonatate 100 mg Capsule
100 mg PO TIDPRN PRN (Reason: cough) Qty: 14 0RF
oseltamivir 75 mg Capsule
75 mg PO BID 2 Days Qty: 4 0RF
Referrals:
[facility] [Provider Group] - Call in 1-3 days for appt
UNKNOWN - PT DOES,NOT KNOW [Family Provider] -
Stand Alone Forms: Return to Work
Interventions
Interventions:
*Risk Screen - Suicide Last Done: 08/12/24 02:14
*General Assessment Last Done: 08/12/24 03:32
*Neglect/Abuse Screening Last Done: 08/12/24 02:14
*ED COVID-19 Vaccine History Last Done: 08/12/24 03:32
ED- Pulmonary Assessment Last Done: 08/12/24 03:32
Discharge Date and Time
Print Language: CYMRO
[2024-08-12 06:00] VITALS: BP 128/83
== END 2024-08-12 06:30 | disposition home or self-care (01) ==
LOC: EMR 02:11
PROVIDERS: Emergency Medicine; EMERGENCY PHYSICIAN Emergency Medicine
DX: D64.9 Anemia, unspecified (principal); R05.9 Cough, unspecified; R53.83 Other fatigue; R11.0 Nausea; Z11.52 Encounter for screening for COVID-19; K21.9 Gastro-esophageal reflux disease without esophagitis; F17.200 Nicotine dependence, unspecified, uncomplicated; Z86.19 Personal history of other infectious and parasitic diseases; Z86.16 Personal history of COVID-19; Z89.512 Acquired absence of left leg below knee
CPT/HCPCS: 99283; 94640; 71046; 80053; 85025; 87502; 87811